=== PATIENT | female | born 1940 | race Caucasian/White ===

== ENCOUNTER 2017-01-28 19:55 | Inpatient (IN) | payer MEDICARE, OTHER ==
[2017-01-28 19:55] VITALS: BP 142/83; PULSE 73; RESP 18; TEMP 98.1; O2SAT 100
[2017-01-28] MEDS ORDERED: SODIUM CHLOR 0.9% 1000 ML INJ 1,000 ML IV ONE (20:05)
--- NOTE | 2017-01-28 20:09 | PD ---
HPI Chief Complaint: Stroke Alert Time Seen by Provider: 20:02 Travel History International Travel<30 days: No Contact w/Intl Traveler<30days: No Traveled to known affect area: No History of Present Illness HPI 76-year-old female presents to the emergency department from home by EMS transport with 45 minute history of new onset expressive aphasia and left facial droop. Patient per EMS report with previous CVA in 2014 without residual deficit and history of hypertension. Patient reportedly has not taken her blood pressure medication today. Patient does not take any blood thinning agents reportedly. Patient here noted to have slurring of speech and denies any pain. Patient's blood sugar sugar and the field was 73; patient's blood pressure in the field was 178/80. According to the dentist attendant patient had moderate expressive aphasia that seemed to improve while en route to the hospital but upon arriving to the emergency department en route to the exam room started noticing worsening expressive aphasia again. In field no other neurologic findings noted. PFSH Past Medical History Narrative Medical CVA 2015, hypertension, CHF, right carotid disease, upper GI bleed, hiatal hernia; left carotid endarterectomy, EGD; nursing notes reviewed Social History Tobacco Use: No Allergies-Medications (Allergen,Severity, Reaction): Coded Allergies: Clindamycin (Verified Allergy, Unknown, 01/28/17) Penicillin (Verified Allergy, Unknown, 01/28/17) Reported Meds & Prescriptions Reported Meds & Active Scripts Active Reported Flonase Nasal [place] (Fluticasone Nasal [place]) 50 Mcg/Act [place] 50 Mcg EACH NARE BID Advair Diskus Inh (Fluticasone-Salmeterol Inh) 250-50 Mcg/Blist Aer 1 Puff INH BID Rinse mouth after use. Guaifenesin 100 Mg/5 Ml Syp 5 Ml Artificial Tears Opth Drops (Polyvinyl Alcohol-Povidone Opth Drops) 0.5-0.6% Soln 1-2 Drop EACH EYE PRN PRN Rosuvastatin (Rosuvastatin Calcium) 20 Mg Tab 20 Mg PO DAILY Ditropan (Oxybutynin Chloride) 5 Mg Tab 10 Mg PO DAILY Levothyroxine (Levothyroxine Sodium) 50 Mcg Tab 50 Mcg PO DAILY Melatonin 10 Mg Tab 10 Mg PO HS PRN Vitamin D2 (Ergocalciferol) 2,000 Unit Tab 1.25 Mg PO DAILY Lisinopril 10 Mg Tab 10 Mg PO DAILY Zofran (Ondansetron HCl) 4 Mg Tab 4 Mg PO Q6HR PRN Narrative Medication Blood pressure medication, no aspirin or other blood thinning agents per patient Review of Systems HENT: No: Headaches Cardiovascular: No: Chest Pain or Discomfort Respiratory: No: Shortness of Breath Physical Exam Narrative GENERAL: Well-developed well-nourished female in no acute respiratory distress; GCS 15 with slurring of speech; patient in sinus rhythm blood pressure 142/83; NIHSS: 2 SKIN: Warm and dry. HEAD: Atraumatic. Normocephalic. EYES: Pupils equal and round, 2 mm. No scleral icterus. No injection or drainage. ENT: No nasal bleeding or discharge. Mucous membranes pink and moist. NECK: Trachea midline. No JVD. CARDIOVASCULAR: Regular rate and rhythm. RESPIRATORY: No accessory muscle use. Clear to auscultation. Breath sounds equal bilaterally. GASTROINTESTINAL: Abdomen soft, non-tender, nondistended. Hepatic and splenic margins not palpable. MUSCULOSKELETAL: Extremities without clubbing, cyanosis, or edema. No obvious deformities. NEUROLOGICAL: Awake and alert. No obvious cranial nerve deficits except is noted to have flattening of the left nasolabial fold and some drooping but also noted to have some mild droop of the right face as well, tongue midline, decreased gag. Motor grossly within normal limits. Five out of 5 muscle strength in the arms and legs. No pronator drift. No limb ataxia. Sensory exam grossly intact. Normal speech. PSYCHIATRIC: Appropriate mood and affect; insight and judgment normal. Data Data Last Documented VS Vital Signs Date Time Temp Pulse Resp B/P Pulse Ox O2 Delivery O2 Flow Rate FiO2 01/28/17 20:30 65 18 186/79 100 Nasal Cannula 2 01/28/17 19:[address] Brain W/O Iv Contrast(Rout) (01/28/17 ) Activity Bed Rest (01/28/17 ) Electrocardiogram (01/28/17 ) I-Stat Creatinine (01/28/17 20:05) I-Stat Profile (01/28/17 20:05) Prothrombin Time / Inr (Pt) (01/28/17 20:05) Act Partial Throm Time (Ptt) (01/28/17 20:05) Complete Blood Count With Diff (01/28/17 20:05) Fibrinogen (01/28/17 20:05) Creatine Kinase (Cpk) (01/28/17 20:05) Troponin I (01/28/17 20:05) Ua Includes Microscopic (01/28/17 20:05) Drug Screen, Random Urine (01/28/17 20:05) Type And Screen (01/28/17 20:05) Consult Neurology (01/28/17 ) Blood Glucose (01/28/17 20:05) Ecg Monitoring (01/28/17 20:05) Neuro Checks Q2HX12,Q4H (01/28/17 20:05) Nursing Bedside Swallow Assess .ONCE (01/28/17 20:05) Iv Access Insert/Monitor (01/28/17 20:05) NPO (01/28/17 20:05) Oximetry (01/28/17 20:05) Oxygen Administration (01/28/17 20:05) Sodium Chlor 0.9% 1000 Ml Inj (Ns 1000 M (01/28/17 20:05) Resp Oxygen Bennie C Titrat 1-4 L (01/28/17 20:05) Cath For Specimen (01/28/17 20:05) (Hub Use Only)Inp Phy Cons/Ref (01/28/17 ) Chest, Single Ap (01/28/17 ) Acetaminophen (Tylenol) (01/28/17 21:15) Admit Order (Ed Use Only) (01/28/17 ) ^ Saline Lock (01/28/17 21:15) Resp Oxygen Bennie C Titrat 1-4 L (01/28/17 ) Notify Dr: Other (01/28/17 21:15) Sodium Chloride 0.9% Flush (Ns Flush) (01/29/17 09:00) Sodium Chloride 0.9% Flush (Ns Flush) (01/28/17 21:15) Labs Laboratory Tests Test 01/28/17 19:55 White Blood Count 8.4 TH/MM3 Red Blood Count 4.16 MIL/MM3 Hemoglobin 12.2 GM/DL Bedside Hemoglobin 12.6 G/DL Hematocrit 36.6 % Bedside Hematocrit 37.0 % Mean Corpuscular Volume 87.9 FL Mean Corpuscular Hemoglobin 29.2 PG Mean Corpuscular Hemoglobin 33.2 % Concent Red Cell Distribution Width 14.9 % Platelet Count 205 TH/MM3 Mean Platelet Volume 9.8 FL Neutrophils (%) (Auto) 30.5 % Lymphocytes (%) (Auto) 52.1 % Monocytes (%) (Auto) 8.1 % Eosinophils (%) (Auto) 7.9 % Basophils (%) (Auto) 1.4 % Neutrophils # (Auto) 2.6 TH/MM3 Lymphocytes # (Auto) 4.4 TH/MM3 Monocytes # (Auto) 0.7 TH/MM3 Eosinophils # (Auto) 0.7 TH/MM3 Basophils # (Auto) 0.1 TH/MM3 CBC Comment DIFF FINAL Differential Comment Prothrombin Time 10.2 SEC Prothromb Time International 0.9 RATIO Ratio Activated Partial 23.4 SEC Thromboplast Time Fibrinogen 323 mg/dL Bedside Sodium 140 MMOL/L Bedside Potassium 3.8 MMOL/L Bedside Chloride 103 MMOL/L Bedside Blood Urea Nitrogen 16 MG/DL Bedside Creatinine 0.8 MG/DL Bedside Glucose 107 MG/DL Total Creatine Kinase 131 U/L Troponin I LESS THAN 0.02 NG/ML Blood Type A NEGATIVE Antibody Screen NEGATIVE MDM Medical Decision Making Medical Screen Exam Complete: Yes Emergency Medical Condition: Yes Medical Record Reviewed: Yes Interpretation(s) EKG normal sinus rhythm rate [address] elevation or injury pattern change noted no ectopy age-indeterminate Q wave inferiorly I-STAT results sodium in normal range at 140 potassium 3.8 BUN 16 creatinine 0.8 not elevated; hemoglobin 12.6 with 37% hematocrit CT brain noncontrast stat imaging reading per radiologist Dr. Palafox: "No acute abnormality" Differential Diagnosis Stroke alert, TIA, ICH, hypertension Narrative Course At 20:10 PM patient returns from CT continues to have mild expressive aphasia which she now reports is back to her baseline as well as having some residual right facial droop from her previous CVA. As she states this was left over from her 2015 CVA and states that she had a sudden onset headache prior to onset of symptoms that was 8/10 intensity is now 6/10 in intensity associated with nausea and one episode of vomiting. Patient denies having any visual disturbance neck pain chest pain palpitations shortness of breath abdominal pain or new onset weakness of the upper or lower extremities or balance disturbance. Patient relates she is no longer on aspirin because she had a GI bleed several years ago. Patient has had a left carotid endarterectomy. Patient states that she does have right carotid disease but has not had surgery. Patient recently moved here from [place] and does not have a local primary care provider or senior compensation analyst. Patient also has history of hypertension and CHF. Patient at this time shows some mild thickening of the left nasolabial fold however no obvious left facial droop at this time this has resolved; has some right facial droop present. Patient continues to have mild expressive aphasia. Patient again declines any thrombolytic therapy and does not want to pursue thrombectomy should she have lesion found by angiography. No prior history of headaches. NIHSS: 2 @ 8:50 PM son at bedside reports noting that patient had difficulty and slurring of speech, does have history of chronic right-sided facial weakness associated with prior CVA from 2015 and seemed to have "drawing of the left side of her face" and some balance disturbance with nausea; son reports now face looks back to her normal to him as well as speech appears back to her normal. Critical Care Narrative Aggregate critical care time was 35 minutes. Time to perform other separately billable procedures was not included in the critical care time. My time did not include minutes spent treating any other patients simultaneously or on activities that did not directly contribute to the patient's treatment. The services I provided to this patient were to treat and/or prevent clinically significant deterioration that could result in: ICH, hypertensive crisis, I provided critical care services requiring my management, as noted below: Chart data review, documentation time, medication orders and management, vital sign assessments/reviewing monitor data, ordering and reviewing lab tests, ordering and interpreting/reviewing x-rays and diagnostic studies, care of the patient and discussion of the patient with the admitting physicians. Physician Communication Physician Communication Stroke alert called in the field and upon patient's arrival to the emergency department case discussed with on-call neurologist Dr. Macedo at 20:03 is aware that I have discussed with patient intervention with thrombolytic and patient refuses this intervention suggests that should patient be desires of pursuing thrombectomy we will proceed with angiography. Patient returns from CT and to exam room @20:10 PM again thrombolysis and thrombectomy options are discussed with this patient and she states she does not want TPA she does not want thrombolysis and she does not want to pursue thrombectomy if found to have abnormality on CT angiogram is performed. At 20:12 PM per reading radiologist, Dr. Palafox, stat CT reading "no acute abnormality". This has been shared with the on-call neurologist who requests consult to see patient in a.m. Diagnosis Primary Impression: TIA (transient ischemic attack) Qualified Code: G45.9 - Transient cerebral ischemia, unspecified type Additional Impressions: CVA, old, facial weakness HTN (hypertension) Qualified Code: I10 - Essential hypertension Admitting Information Admitting Physician Requests: Observation Tomasa Luevano MD January 28, 2017 20:09
[2017-01-28 20:13] VITALS: BP 177/79; PULSE 74; RESP 18; O2SAT 100
--- NOTE | 2017-01-28 20:14 | RADRPT ---
EXAM DATE/TIME: 01/28/2017 20:05 [facility] COMPARISON: No previous studies available for comparison. INDICATIONS : Left side facial droop with aphasia. RADIATION DOSE: 34.90 CTDIvol (mGy) This report was called by Dr. Palafox to Dr. Luevano at 8: 12 PM MEDICAL HISTORY : Unable to obtain SURGICAL HISTORY : unable to obtain ENCOUNTER: Initial ACUITY: 1 day PAIN SCALE: 0/10 LOCATION: cranial TECHNIQUE: Multiple contiguous axial images were obtained of the head. Using automated exposure control and adj ustment of the mA and/or kV according to patient size, radiation dose was kept as low as reasonably a chievable to obtain optimal diagnostic quality images. FINDINGS: CEREBRUM: The ventricles are normal for age. No evidence of midline shift, mass lesion, hemorrhage or acute in farction. No extra-axial fluid collections are seen. POSTERIOR FOSSA: The cerebellum and brainstem are intact. The 4th ventricle is midline. The cerebellopontine angle i s unremarkable. EXTRACRANIAL: The visualized portion of the orbits is intact. SKULL: The calvaria is intact. No evidence of skull fracture. CONCLUSION: No acute intracranial abnormality is seen. Te Palafox MD on January 28, 2017 at 20:10 Board Certified Radiologist. This report was verified electronically.
[2017-01-28 20:23] VITALS: O2SAT 100
[2017-01-28 20:30] VITALS: BP 186/79; PULSE 65; RESP 18; O2SAT 100
[2017-01-28 20:30] LABS: AUTOMATED NEUTROPHIL # 2.6 TH/MM3 (1.8-7.7); BASOPHIL # 0.1 TH/MM3 (0-0.2); BASOPHIL % 1.4 % (0.0-2.0); EOSINOPHIL # 0.7 TH/MM3 (0-0.4); EOSINOPHIL % 7.9 % (0.0-4.0); HEMATOCRIT 36.6 % (35.0-46.0); HEMO FLAGS DIFF FINAL; LYMPH % 52.1 % (9.0-44.0); LYMPHOCYTE # 4.4 TH/MM3 (1.0-4.8); MEAN CELL VOLUME 87.9 FL (80.0-100.0); MEAN CORPUSCULAR HEMOGLOBIN 29.2 PG (27.0-34.0); MEAN CORPUSCULAR HGB CONC 33.2 % (32.0-36.0); MONO % 8.1 % (0.0-8.0); NEUT % 30.5 % (16.0-70.0); PLATELET COUNT 205 TH/MM3 (150-450); RED BLOOD COUNT 4.16 MIL/MM3 (4.00-5.30); RED CELL DISTRIBUTION WIDTH 14.9 % (11.6-17.2); WHITE BLOOD COUNT 8.4 TH/MM3 (4.0-11.0)
[2017-01-28 20:32] LABS: I-STAT POTASSIUM 3.8 MMOL/L (3.5-4.9); I-STAT SODIUM 140 MMOL/L (138-146)
[2017-01-28 20:49] LABS: APTT (PATIENT) 23.4 SEC (24.3-30.1); INTERNATIONAL NORMALIZED RATIO 0.9 RATIO; PROTHROMBIN TIME - PATIENT 10.2 SEC (9.8-11.6)
[2017-01-28] MEDS ORDERED: ZOFR4TAB PO (20:50)
[2017-01-28] MEDS ORDERED: LISI10TA3 PO (20:52)
[2017-01-28] MEDS ORDERED: ERGO2000 PO (20:53)
[2017-01-28] MEDS ORDERED: MELA1TAB18 PO (20:53)
[2017-01-28] MEDS ORDERED: LEVO50TA4 PO (20:53)
[2017-01-28] MEDS ORDERED: OXYB5TAB10 PO (20:54)
[2017-01-28] MEDS ORDERED: ROSU1TAB8 PO (20:54)
[2017-01-28] MEDS ORDERED: GUAI100S10 (20:55)
[2017-01-28] MEDS ORDERED: POLYSOL14 EACH EYE (20:55)
[2017-01-28] MEDS ORDERED: FLUT1SPR5 EACH NARE (20:56)
[2017-01-28] MEDS ORDERED: ADVA250A INH (20:56)
[2017-01-28 21:08] LABS: CREATINE KINASE 131 U/L (26-192)
[2017-01-28] MEDS ORDERED: SODIUM CHLORIDE 0.9% FLUSH 10 ML FLUSH IVF PRN (21:15)
[2017-01-28] MEDS ORDERED: ACETAMINOPHEN 325 MG TAB PO ONE (21:15)
[2017-01-28] MEDS ORDERED: SODIUM CHLORIDE 0.9% FLUSH 10 ML FLUSH IV FLUSH PRN (21:30)
[2017-01-28] MEDS ORDERED: BISACODYL 10 MG SUPP RECTAL PRN (21:30)
[2017-01-28] MEDS ORDERED: MORPHINE SULFATE 4 MG/ML INJ IV PRN (21:30)
[2017-01-28] MEDS ORDERED: ONDANSETRON HCL 4 MG/2 ML VIAL IVP PRN (21:30)
[2017-01-28] MEDS ORDERED: ACETAMINOPHEN 325 MG TAB PO PRN (21:30)
--- NOTE | 2017-01-28 21:34 | HHI.HP ---
[facility] Admission Diagnosis TIA Diagnoses: (1) TIA (transient ischemic attack) Diagnosis: Principal (2) Headache Diagnosis: Principal (3) HTN (hypertension) Diagnosis: Principal (4) COPD (chronic obstructive pulmonary disease) Diagnosis: Principal Travel History International Travel<30 Days: No Contact w/Intl Traveler <30 Da: No Traveled to Known Affected Are: No History of Present Illness This is a 76-year-old female with a PMH of CVA with Residual Expressive Aphasia and Facial Droop, HTN, Upper GI Bleed and CHF (EF unknown) who was brought to the ER by EMS for slurred speech and worsening facial droop noted by family starting shortly prior to presentation. Pt reports c/o severe headache prior to symptoms. Upon arrival to ER symptoms had improved, currently w/ facial droop and expressive aphasia back to baseline. On arrival, BP 142/83, HR 73, O2 sat 100% on 2L NC, Afebrile. CBC essentially unremarkable. Chemistry unremarkable. Troponin negative. CXR with no acute findings. CT Head negative. Dr. Carlin consulted as Stroke Alert, recommended TPA, however pt and family refused TPA or thrombectomy. Not on anticoagulation at this time. Review of Systems Except as stated in HPI: all other systems reviewed are Neg ROS: 14 point review of systems otherwise negative. Past Family Social History Past Medical History PMH: CVA with Residual Expressive Aphasia and Facial Droop, HTN, Upper GI Bleed and CHF (EF unknown) Past Surgical History PAST SURGICAL HISTORY: Cataract Surgery, Cholecystectomy, Hernia Repair, Hysterectomy, Left CEA Allergies: Coded Allergies: Clindamycin (Verified Allergy, Unknown, 01/28/17) Penicillin (Verified Allergy, Unknown, 01/28/17) Family History PAST FAMILY HISTORY: Reviewed. No h/o DM or CAD Social History PAST SOCIAL HISTORY: Negative for alcohol, tobacco or drugs. Physical Exam Vital Signs Vital Signs Date Time Temp Pulse Resp B/P Pulse Ox O2 Delivery O2 Flow Rate FiO2 01/28/17 20:30 65 18 186/79 100 Nasal Cannula 2 01/28/17 20:23 100 Nasal Cannula 2 01/28/17 20:23 100 Nasal Cannula 2 01/28/17 20:13 74 18 177/79 100 Nasal Cannula 2 01/28/17 19:55 98.1 73 18 142/83 100 Nasal Cannula 2 Physical Exam PE: GENERAL: Elderly white female in no acute distress. +Mild slurred speech, at baseline. HEENT: PERRLA, EOMI. No scleral icterus or conjunctival pallor. No lid lag. + right facial droop, at baseline. CARDIOVASCULAR: Regular rate and rhythm. No obvious murmurs to auscultation. No chest tenderness to palpation. RESPIRATORY: No obvious rhonchi or wheezing. Clear to auscultation. Breath sounds equal bilaterally. GASTROINTESTINAL: Abdomen soft, non-tender, nondistended. BS normal. MUSCULOSKELETAL: Extremities without clubbing, cyanosis, or edema. No obvious deformities. NEUROLOGICAL: Awake, alert and oriented x4. No new focal neurologic deficits. Moving both upper and lower extremities spontaneously. Laboratory Laboratory Tests Test 01/28/17 19:55 White Blood Count 8.4 Red Blood Count 4.16 Hemoglobin 12.2 Bedside Hemoglobin 12.6 Hematocrit 36.6 Bedside Hematocrit 37.0 Mean Corpuscular Volume 87.9 Mean Corpuscular Hemoglobin 29.2 Mean Corpuscular Hemoglobin 33.2 Concent Red Cell Distribution Width 14.9 Platelet Count 205 Mean Platelet Volume 9.8 Neutrophils (%) (Auto) 30.5 Lymphocytes (%) (Auto) 52.1 Monocytes (%) (Auto) 8.1 Eosinophils (%) (Auto) 7.9 Basophils (%) (Auto) 1.4 Neutrophils # (Auto) 2.6 Lymphocytes # (Auto) 4.4 Monocytes # (Auto) 0.7 Eosinophils # (Auto) 0.7 Basophils # (Auto) 0.1 CBC Comment DIFF FINAL Differential Comment Prothrombin Time 10.2 Prothromb Time International 0.9 Ratio Activated Partial 23.4 Thromboplast Time Fibrinogen 323 Bedside Sodium 140 Bedside Potassium 3.8 Bedside Chloride 103 Bedside Blood Urea Nitrogen 16 Bedside Creatinine 0.8 Bedside Glucose 107 Total Creatine Kinase 131 Troponin I LESS THAN 0.02 Blood Type A NEGATIVE Antibody Screen NEGATIVE Result Diagram: 01/28/171954 Assessment and Plan Problem List: (1) TIA (transient ischemic attack) ICD Code: G45.9 Status: Acute (2) HTN (hypertension) ICD Code: I10 Status: Acute (3) Headache ICD Code: R51 Status: Acute (4) COPD (chronic obstructive pulmonary disease) ICD Code: J44.9 Status: Acute Assessment and Plan A/P: 1. TIA: h/o CVA w/ residual expressive aphasia/right facial droop, w/ acute worsening of droop and slurred speech, symptoms now resolved. CT Head w/ no acute findings, images reviewed by me. Dr. Carlin consulted by ER physician, recommended TPA, however pt and family declined thrombolysis or thrombectomy. Start ASA-caution w/ h/o GI Bleed. Resume home Statin. Neurology to eval in am. 2. Headache: S/p Tylenol, currently improved. Symptom onset shortly before slurred speech/facial droop. Analgesics as needed. 3. HTN: BP 170's systolic. Will allow for permissive HTN, hold home medications. 4. COPD: Chronic Obstructive Respiratory Failure. Stable. DuoNeb prn. 5. DVT Prophylaxis: SCD/Teds. 6. Social work for d/c planning as needed. 7. Case discussed w/ ER physician at length. Physician Certification 2 Midnight Certification Type: Admission for Inpatient Services Order for Inpatient Services The services are ordered in accordance with Medicare regulations or non- Medicare payer requirements, as applicable. In the case of services not specified as inpatient-only, they are appropriately provided as inpatient services in accordance with the 2-midnight benchmark. Estimated LOS (days): 2 days is the estimated time the patient will need to remain in the hospital, assuming treatment plan goals are met and no additional complications. Post-Hospital Plan: Not yet determined Problem Qualifiers (1) TIA (transient ischemic attack): Qualified Code: G45.9 - Transient cerebral ischemia, unspecified type (2) HTN (hypertension): Qualified Code: I10 - Essential hypertension Amelie Samayoa MD January 28, 2017 21:34
[2017-01-28 21:37] VITALS: BP 156/78; PULSE 78; RESP 18; O2SAT 99
--- NOTE | 2017-01-28 21:39 | RADRPT ---
EXAM DATE/TIME: 01/28/2017 21:21 [facility] COMPARISON: No previous studies available for comparison. INDICATIONS : Stroke alert. MEDICAL HISTORY : unable to obtain SURGICAL HISTORY : unable to obtain ENCOUNTER: Initial ACUITY: 1 day PAIN SCORE: 4/10 LOCATION: Bilateral upper chest FINDINGS: The heart size is normal. There is linear increased density at the medial left base. The remaining as pects of the lungs are clear. No effusion is seen. Spurs are seen in the thoracic spine. CONCLUSION: Linear density at the medial left base likely related to atelectasis or mild consolidation. Te Palafox MD on January 28, 2017 at 21:36 Board Certified Radiologist. This report was verified electronically.
[2017-01-28] MEDS: SODIUM CHLOR 0.9% 1000 ML INJ 1,000 ML IV SCH (21:52)
[2017-01-29] VITALS (10 sets, daily range): BP systolic 113–160; BP diastolic 56–86; PULSE 51–66; RESP 16–20; TEMP 96.9–98; O2SAT 98–100
[2017-01-29] MEDS: ACETAMINOPHEN/HYDROcodone 325 MG/5 MG TAB PO PRN (04:37)
[2017-01-29] MEDS: SODIUM CHLOR 0.9% 1000 ML INJ 1,000 ML IV SCH ×4 (08:07→20:46)
[2017-01-29] MEDS: SODIUM CHLORIDE 0.9% FLUSH 10 ML FLUSH IV FLUSH SCH ×2 (08:07→20:45)
[2017-01-29] MEDS: ATORVASTATIN 40 MG TAB PO SCH (08:09)
[2017-01-29] MEDS: ASPIRIN EC 81 MG TABEC PO SCH (08:09)
[2017-01-29] MEDS: BUDESONIDE-FORMOTEROL 160/4.5 MCG INHALER INH SCH ×2 (08:27→20:45)
[2017-01-29 08:37] LABS: ALT (GPT) 20 U/L (10-53); ANION GAP 4 MEQ/L (5-15); AST (GOT) 23 U/L (15-37); BICARBONATE 28.9 MEQ/L (21.0-32.0); BLOOD UREA NITROGEN 11 MG/DL (7-18); CHLORIDE 109 MEQ/L (98-107); GLOMERULAR FILTRATION RATE 72 ML/MIN (>89); POTASSIUM 4.2 MEQ/L (3.5-5.1); SODIUM (NA) 142 MEQ/L (136-145)
[2017-01-29 08:39] LABS: ALKALINE PHOSPHATASE 76 U/L (45-117); TOTAL BILIRUBIN ADULT 0.7 MG/DL (0.2-1.0)
[2017-01-29 09:00] LABS: AUTOMATED NEUTROPHIL # 2.2 TH/MM3 (1.8-7.7); BASOPHIL # 0.1 TH/MM3 (0-0.2); BASOPHIL % 2.6 % (0.0-2.0); EOSINOPHIL # 0.5 TH/MM3 (0-0.4); EOSINOPHIL % 8.5 % (0.0-4.0); HEMATOCRIT 35.4 % (35.0-46.0); HEMO FLAGS DIFF FINAL; LYMPHOCYTE # 2.4 TH/MM3 (1.0-4.8); MEAN CORPUSCULAR HEMOGLOBIN 29.1 PG (27.0-34.0); MONO % 7.3 % (0.0-8.0); NEUT % 39.6 % (16.0-70.0); PLATELET COUNT 190 TH/MM3 (150-450); RED BLOOD COUNT 4.03 MIL/MM3 (4.00-5.30); RED CELL DISTRIBUTION WIDTH 15.2 % (11.6-17.2); WHITE BLOOD COUNT 5.7 TH/MM3 (4.0-11.0)
[2017-01-29] MEDS ORDERED: SODIUM CHLORIDE 0.9% FLUSH 10 ML FLUSH IV FLUSH SCH (09:00)
--- NOTE | 2017-01-29 10:09 | MB ---
cc: AURY SEGURA M.D. DATE OF CONSULTATION: 01/29/2017 HISTORY OF PRESENT ILLNESS The patient is a 76-year-old right-handed woman with hypertension, hypercholesterolemia, COPD, hypothyroidism, tells me she has had five strokes. She usually takes Plavix and was on Plavix and aspirin but she had some bleeding in and around her eyes so about five months ago she was switched to Plavix from the aspirin. Nevertheless, she has not taken it in the last three days because she ran out of medication. She just moved down here from [place]. She tells me she has had five strokes which mainly were left facial tingling and some nausea and in March 2015 she had a headache and the next thing she knew she was in the hospital and had trouble talking and walking and after that went to rehab. Yesterday she came back from the store and had the sudden onset of severe headache, worse of her life, with nausea, vomiting, no weakness, vision loss, paralysis or numbness. It was a bifrontal headache and she came to the hospital. The ER note, however, says that she had expressive aphasia and left facial droop. She had some slurred speech in the ER. Blood sugar was 73. Blood pressure was 178/80. Aphasia seemed to improve on the way to the hospital. PAST MEDICAL HISTORY 1. As above. 2. CHF. 3. Right carotid disease. 4. Upper GI bleeding. 5. Left carotid endarterectomy. 6. EGD. ALLERGIES 1. CLINDAMYCIN. 2. PENICILLIN. MEDICATIONS 1. Flonase. 2. Advair. 3. Rosuvastatin. 4. Ditropan. 5. Thyroid medicine. 6. Melatonin. 7. Lisinopril. 8. Zofran. 9. Plavix, which she has not taken in 3 days. REVIEW OF SYSTEMS She denied any diabetes, MO, stent, angioplasty, atrial fibrillation, Coumadin, renal or hepatic disease, lupus, ulcer cancer or seizure. PHYSICAL EXAMINATION VITAL SIGNS: On exam she has been in sinus rhythm, afebrile, 52, 16, 113/56 to 186/79. NECK: There were no carotid bruits. HEART: Regular rhythm. I do not detect a murmur. NEUROLOGIC: Pupils are equal. Visual wallace are full. Extraocular intact without nystagmus. Face is symmetric with normal station. Tongue is midline. There is no drift. She has normal strength in upper and lower extremities bilaterally. DTRs are trace throughout. Toes are downgoing bilaterally. Pinprick is intact throughout. She is not ataxic on [id number]. Speech is fluent. She is not aphasic. NIH Stroke Score is zero. LABORATORY CBC is normal. Basic metabolic profile normal. Troponin, CPK normal. Coags normal. IMAGING Chest x-ray showed atelectasis on the left. CAT scan was read as no acute abnormality. On review of those films I would agree that this appeared to be normal. IMPRESSION Sounds like possible TIA with the slurred speech and left facial droop. Will put her back on her Plavix. Will get an MRI of the brain, MRA curyung Veloz and neck, echocardiogram, Holter monitor. Will check some additional blood work. I will be following her with you in the hospital. MD SCOTT Farah/CONNOR /8:30 AM /9:48 AM
[2017-01-29] MEDS: CLOPIDOGREL 75 MG TAB PO SCH (10:31)
[2017-01-29] MEDS ORDERED: GADODIAMIDE PF 287 MG/ML 20 ML VIAL (for RAD MRI) IV ONE (12:09)
--- NOTE | 2017-01-29 12:10 | RADRPT ---
EXAM DATE/TIME: 01/29/2017 11:21 [facility] COMPARISON: No previous studies available for comparison. INDICATIONS : Slurred speech. MEDICAL HISTORY : Hypertension. SURGICAL HISTORY : Hysterectomy. Cholecystectomy. Discectomy, cervical. ENCOUNTER: Initial ACUITY: 2 day PAIN SCORE: 0/10 LOCATION: Head. Please note a normal MRA of the brain does not entirely exclude the possibility of a small aneurysm, nor the possibility of distal intracranial vessel disease. TECHNIQUE: 3D time of flight MRA was performed. Source images, multiplanar STS MIP, and 3D volume MIP reconstru ctions were reviewed. FINDINGS: Both distal carotid arteries are widely patent. The left vert is hypoplastic. The right vert is widel y patent. The basilar is widely patent. The appearance of anterior, middle and posterior cerebral circulation is within normal limits. CONCLUSION: 1. No large or central vessel occlusion identified. 2. Incidental hypoplastic left vert. Kane Frost MD on January 29, 2017 at 12:01 Board Certified Radiologist. This report was verified electronically.
--- NOTE | 2017-01-29 12:35 | RADRPT ---
EXAM DATE/TIME: 01/29/2017 11:21 [facility] COMPARISON: MRI BRAIN W & W/O CONTRAST, January 29, 2017, 11:21. INDICATIONS : Stroke. CONTRAST: 20 cc Omniscan (gadodiamide) IV MEDICAL HISTORY : Hypertension. SURGICAL HISTORY : Discectomy, cervical. Hysterectomy. Cholecystectomy. ENCOUNTER: Initial ACUITY: 2 day PAIN SCORE: 0/10 LOCATION: neck Percent stenosis is calculated using the diameter of the stenotic region over the diameter of the nor mal distal internal carotid artery. TECHNIQUE: Bolus infused MRA of the extracranial circulation was performed using a neurovascular coil. Post pro cessing was performed including rotating subvolume maximum intensity projections of each carotid kings ry, rotating full volume maximum intensity projections of both carotid arteries, sagittal and coronal sliding thin slab reformations of each carotid artery, and left oblique sliding thin slab reformatio n through the aortic arch to include the origin of the arch branch vessels. FINDINGS: AORTIC ARCH: There is a three vessel origin of the great vessels from the aorta. No evidence of ostial narrowing. There is mild kinking and moderate stenosis involving the left subclavian artery just proximal to th e left vertebral artery origin. RIGHT CAROTID: The common carotid artery is intact. The carotid bulb has a normal configuration without ulceration or narrowing. The internal carotid artery lumen is smooth without stenosis. The external carotid ar amy is intact. LEFT CAROTID: The common carotid artery is intact. The carotid bulb has a normal configuration without ulceration or narrowing. The internal carotid artery lumen is smooth without stenosis. The external carotid ar amy is intact. VERTEBRALS: The left vertebral artery is diminutive. Right vertebral is widely patent. CONCLUSION: No evidence of carotid stenosis Te Moreno MD on January 29, 2017 at 12:01 Board Certified Radiologist. This report was verified electronically.
--- NOTE | 2017-01-29 13:29 | HHI.PR ---
Subjective Remarks Complaints of headache. No change in vision. denies chest pain, sob, n/v/d/c. Says headache has improved since yesterday . Still with slurred speech, improving some. Nop motor deficit, no new motor/sensory deficit. Objective Vitals Vital Signs Date Time Temp Pulse Resp B/P Pulse Ox O2 Delivery O2 Flow Rate FiO2 01/29/17 12:00 97.4 54 17 141/65 100 01/29/17 08:00 96.9 53 19 160/86 99 01/29/17 05:35 16 01/29/17 04:00 97.9 52 16 113/56 100 01/29/17 00:23 97.6 51 18 131/66 100 01/28/17 21:37 78 18 156/78 99 Nasal Cannula 2 01/28/17 20:30 65 18 186/79 100 Nasal Cannula 2 01/28/17 20:23 100 Nasal Cannula 2 01/28/17 20:23 100 Nasal Cannula 2 01/28/17 20:13 74 18 177/79 100 Nasal Cannula 2 01/28/17 19:55 100 Nasal Cannula 3.00 01/28/17 19:55 100 3.00 01/28/17 19:55 98.1 73 18 142/83 100 Nasal Cannula 2 I/O 01/28/17 01/28/17 01/28/17 01/29/17 01/29/17 01/29/17 07:00 15:00 23:00 07:00 15:00 23:00 Intake Total 1120 ml Output Total 800 ml Balance 320 ml Intake Oral 120 ml IV Total 1000 ml Output Urine Total 800 ml Result Diagram: 01/29/1772001/29/17720 Imaging Last Impressions Neck Magnetic Resonance Angiography 01/29/17831 Signed Impressions: Service Date/Time: Sunday, January 29, 2017 11:21 - CONCLUSION: No evidence of carotid stenosis Te Moreno MD Head Magnetic Resonance Angiography 01/29/17831 Signed Impressions: Service Date/Time: Sunday, January 29, 2017 11:21 - CONCLUSION: 1. No large or central vessel occlusion identified. 2. Incidental hypoplastic left vert. Kane Frost MD Head CT 01/28/17 0000 Signed Impressions: Service Date/Time: January 20:05 - CONCLUSION: No acute intracranial abnormality is seen. Te Palafox MD Chest X-Ray 01/28/17 0000 Signed Impressions: Service Date/Time: January 21:21 - CONCLUSION: Linear density at the medial left base likely related to atelectasis or mild consolidation. Te Palafox MD Objective Remarks GENERAL: Elderly white female in no acute distress. +Mild slurred speech, at baseline. HEENT: PERRLA, EOMI. No scleral icterus or conjunctival pallor. No lid lag. + right facial droop, at baseline. CARDIOVASCULAR: Regular rate and rhythm. No obvious murmurs to auscultation. No chest tenderness to palpation. RESPIRATORY: No obvious rhonchi or wheezing. Clear to auscultation. Breath sounds equal bilaterally. GASTROINTESTINAL: Abdomen soft, non-tender, nondistended. BS normal. MUSCULOSKELETAL: Extremities without clubbing, cyanosis, or edema. No obvious deformities. NEUROLOGICAL: Awake, alert and oriented x4. No new focal neurologic deficits. Moving both upper and lower extremities spontaneously. A/P Problem List: (1) TIA (transient ischemic attack) ICD Code: G45.9 Status: Acute (2) HTN (hypertension) ICD Code: I10 Status: Acute (3) Headache ICD Code: R51 Status: Acute (4) COPD (chronic obstructive pulmonary disease) ICD Code: J44.9 Status: Acute Assessment and Plan 1. 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 CT Head w/ no acute findings. Dr Carlin neurology consulted in the ED, he recommended TPA, however pt and family declined thrombolysis or thrombectomy. Start ASA-caution with h/ o GI Bleed. Resume home Statin. Plan for MRI/ MRA, 2D ECHO, Holter monitor, further work up per neuro. Neurology following, appreciate recommendations. 2. Headache: S/p Tylenol, currently improved. Symptom onset shortly before slurred speech/facial droop. Analgesics as needed. 3. HTN: BP 170's systolic. Will allow for permissive HTN, hold home medications. 4. COPD: Chronic Obstructive Respiratory Failure. Stable. DuoNeb prn. DVT Prophylaxis: SCD/Teds. CM consult for DC planning as needed. Discussed with the patient and the nurse. Problem Qualifiers (1) TIA (transient ischemic attack): Qualified Code: G45.9 - Transient cerebral ischemia, unspecified type (2) HTN (hypertension): Qualified Code: I10 - Essential hypertension Alicia Rodriguez MD January 29, 2017 13:28
--- NOTE | 2017-01-29 13:45 | RADRPT ---
EXAM DATE/TIME: 01/29/2017 11:21 [facility] COMPARISON: CT BRAIN W/O CONTRAST, January 28, 2017, 20:05. INDICATIONS : Slurred speech. CONTRAST: 20 cc Omniscan (gadodiamide) IV MEDICAL HISTORY : Hypertension. SURGICAL HISTORY : Hysterectomy. Discectomy, cervical. Cholecystectomy. ENCOUNTER: Initial ACUITY: 2 day PAIN SCORE: 0/10 LOCATION: head. TECHNIQUE: Multiplanar, multisequence MRI of the brain was performed both prior to and following the administrat ion of paramagnetic contrast. FINDINGS: CEREBRUM: The ventricles are normal for age. No evidence of midline shift, mass lesion, hemorrhage or acute in farction. No extraaxial fluid collections are seen. The pituitary gland and suprasellar cistern are normal in configuration. WHITE MATTER: A few tiny nonspecific white matter lesions are observed involving the periventricular and subcortica l white matter of both cerebral hemispheres. POSTERIOR FOSSA: The cerebellum and brainstem are intact. The 4th ventricle is midline. The cerebellopontine angle is unremarkable. The cerebellar tonsils are normal in position. DIFFUSION IMAGING: No focal areas of restricted diffusion are seen. No evidence of acute infarction. EXTRACRANIAL: The visualized portions of the orbits and paranasal sinuses are unremarkable. Scattered fluid signal is seen involving the mastoid air cells bilaterally. This is more pronounced on the left. POST-CONTRAST: No abnormal areas of parenchymal or dural enhancement. No evidence of blood-brain barrier breakdown. CONCLUSION: 1. No acute intracranial abnormality. 2. Small nonspecific scattered white matter lesions. These likely relate to chronic small vessel isch emic change. 3. Fluid signal involving the mastoid air cells bilaterally. Clinical evaluation for any signs of acu te mastoiditis suggested. Carl Mix Jr., MD on January 29, 2017 at 13:38 Board Certified Radiologist. This report was verified electronically.
--- NOTE | 2017-01-29 15:34 | EKG ---
Date Performed: 01/28/2017 Time Performed: 19:58:31 PTAGE: 76 years EKG: Sinus rhythm POSSIBLE INFERIOR MYOCARDIAL INFARCTION BORDERLINE ECG NO PREVIOUS TRACING DOCTOR: Dov Tan Interpretating Date/Time 01/29/2017 15:29:50
[2017-01-29 16:55] LABS: RHEUMATOID FACTOR TRIGGER LESS THAN 10.0 IU/ML (0.0-14.9)
[2017-01-29 17:21] LABS: FREE T4 0.9 NG/DL (0.76-1.46); HDL CHOLESTEROL 45.5 MG/DL (40.0-60.0)
--- NOTE | 2017-01-29 19:01 | EC ---
Study Study Date:01/29/2017 STUDY CONCLUSIONS SUMMARY - Left ventricle: The cavity size was normal. Systolic function was normal. The estimated ejection fraction was in the range of 55% to 60%. Wall motion was normal; there were no regional wall motion abnormalities. The study is not technically sufficient to allow evaluation of LV diastolic function. - Aortic valve: There is aortic valve sclerosis. Mild to moderate regurgitation directed centrally in the LVOT. If LV function is below 40, please consider prescribing an ACEI or ARB or document rationale for non-use. PROCEDURE DATA STUDY STATUS: Elective. Procedure: Transthoracic echocardiography. Image quality was good. Scanning was performed from the parasternal, apical, and subcostal acoustic windows. Study completion: The patient tolerated the procedure well. Transthoracic echocardiography. M-mode, complete 2D, complete spectral Doppler, and color Doppler. Patient status: Inpatient. CARDIAC ANATOMY LEFT VENTRICLE: The cavity size was normal. Systolic function was normal. The estimated ejection fraction was in the range of 55% to 60%. Wall motion was normal; there were no regional wall motion abnormalities. The study is not technically sufficient to allow evaluation of LV diastolic function. AORTIC VALVE: The valve appears to be grossly normal. Probably trileaflet. Doppler: There is aortic valve sclerosis. Mild to moderate regurgitation directed centrally in the LVOT. Mean gradient: 10mm Hg (S). Peak gradient: 22mm Hg (S). MITRAL VALVE: The valve appears to be grossly normal. Doppler: There was no evidence for stenosis. Trace to mild regurgitation. Mean gradient: 2mm Hg (D). Peak gradient: 5mm Hg (D). LEFT ATRIUM: The atrium was normal in size. RIGHT VENTRICLE: The cavity size was normal. PULMONIC VALVE: Not visualized. TRICUSPID VALVE: The valve appears to be grossly normal. Doppler: There was no evidence for stenosis. Trace regurgitation. PERICARDIUM: There was no pericardial effusion. BASIC MEASUREMENTS ADULT NORMAL Left ventricle LV internal dimension, ED, chordal level, 45 mm 43-52 PLAX LV internal dimension, ES, chordal level, 32.2 mm 23-38 PLAX Fractional shortening, chordal level, PLAX *28 % >29 LV posterior wall thickness, ED 7.05 mm IVS/LVPW ratio, ED 1.26 <1.3 Ventricular septum Septal thickness, ED 8.89 mm Aortic valve Leaflet separation 15 mm 15-26 Left atrium Anterior-posterior dimension 28 mm Right ventricle RV internal dimension, ED, PLAX 20.7 mm 19-38 BASIC MEASUREMENTS ADULT NORMAL Aortic valve Leaflet separation 15 mm 15-26 Aorta Root diameter, ED 23 mm 20-37 DOPPLER MEASUREMENTS ADULT NORMAL Aortic valve Peak velocity, S 234 cm/s Mean velocity, S 144 cm/s VTI, S 53.5 cm Mean gradient, S 10 mm Hg Peak gradient, S 22 mm Hg Mitral valve Peak E-wave velocity 91.9 cm/s Peak A-wave velocity 90.7 cm/s Mean velocity, D 68.8 cm/s Mean gradient, D 2 mm Hg Peak gradient, D 5 mm Hg Peak E/A ratio 1 Tricuspid valve Regurgitant peak velocity 233 cm/s Peak RV-RA gradient, S 22 mm Hg Maximal regurgitant velocity 233 cm/s LEGEND: Mean values are shown as u=mean value. Asterisk (*) quinones values outside specified normal range. Prepared and signed by Amandeep Dyer [id number]
[2017-01-30] VITALS (9 sets, daily range): BP systolic 115–154; BP diastolic 54–70; PULSE 54–66; RESP 18–20; TEMP 96.8–97.8; O2SAT 94–100
[2017-01-30] MEDS: SODIUM CHLOR 0.9% 1000 ML INJ 1,000 ML IV SCH ×5 (03:29→21:34)
[2017-01-30] MEDS: ACETAMINOPHEN/HYDROcodone 325 MG/5 MG TAB PO PRN (06:04)
[2017-01-30] MEDS: ASPIRIN EC 81 MG TABEC PO SCH (07:49)
[2017-01-30] MEDS: CLOPIDOGREL 75 MG TAB PO SCH (07:50)
[2017-01-30] MEDS: ATORVASTATIN 40 MG TAB PO SCH (07:50)
[2017-01-30] MEDS: SODIUM CHLORIDE 0.9% FLUSH 10 ML FLUSH IV FLUSH SCH ×2 (07:51→21:32)
[2017-01-30] MEDS: BUDESONIDE-FORMOTEROL 160/4.5 MCG INHALER INH SCH ×2 (09:47→21:32)
--- NOTE | 2017-01-30 10:04 | HHI.PR ---
Objective Vital Signs Date Time Temp Pulse Resp B/P Pulse Ox O2 Delivery O2 Flow Rate FiO2 01/30/17 08:00 97.7 54 19 141/67 96 01/30/17 07:56 16 01/30/17 07:55 16 01/30/17 04:00 96.8 62 20 139/57 95 01/30/17 00:00 97.0 62 20 125/65 100 01/29/17 21:58 100 Nasal Cannula 2.00 01/29/17 20:00 97.7 63 20 142/67 100 01/29/17 19:42 66 01/29/17 18:03 98 Nasal Cannula 2.00 01/29/17 16:00 98.0 55 17 117/62 99 01/29/17 12:00 97.4 54 17 141/65 100 I/O 01/29/17 01/29/17 01/29/17 01/30/17 01/30/17 01/30/17 07:00 15:00 23:00 07:00 15:00 23:00 Intake Total 1120 ml 720 ml 240 ml 1050 ml Output Total 800 ml 500 ml Balance 320 ml 720 ml 240 ml 550 ml Intake Oral 120 ml 720 ml 240 ml 200 ml IV Total 1000 ml 750 ml Other 100 ml Output Urine Total 800 ml 500 ml # Voids 4 2 1 # Bowel Movements 1 0 0 Result Diagram: 01/29/17 0721 01/29/17 0721 Other Results mra neck 40% r ica mra cow ? some r mca dz probably ok esr 73 echo nl sr r vert dom Objective Remarks awake alert face and speech nl is tender bilat temples a little Assessment and Plan Assessment and Plan imp tia? another patterson today has not been having patterson but has been having tenderness or temples and forehead for a month and esr inc check crp and if inc will consider ta bx no old cva major on mri may have some r mca dz? cta check fuy holter plavix asa 81 and statin for now ldl 127 check eeg Fransico Welsh MD January 30, 2017 10:04
[2017-01-30 11:33] LABS: TOTAL PROTEIN SPE 6.5 GM/DL (6.0-7.6)
--- NOTE | 2017-01-30 13:00 | HHI.PR ---
Subjective Remarks Patient in nad. Says she has less headache today. No change in vision.No motor deficit. Denies cp, sob, n/v/d/c. Objective Vitals Vital Signs Date Time Temp Pulse Resp B/P Pulse Ox O2 Delivery O2 Flow Rate FiO2 01/30/17 12:00 97.4 55 18 154/67 100 01/30/17 08:00 97.7 54 19 141/67 96 01/30/17 07:56 16 01/30/17 07:55 16 01/30/17 04:00 96.8 62 20 139/57 95 01/30/17 00:00 97.0 62 20 125/65 100 01/29/17 21:58 100 Nasal Cannula 2.00 01/29/17 20:00 97.7 63 20 142/67 100 01/29/17 19:42 66 01/29/17 18:03 98 Nasal Cannula 2.00 01/29/17 16:00 98.0 55 17 117/62 99 I/O 01/29/17 01/29/17 01/29/17 01/30/17 01/30/17 01/30/17 07:00 15:00 23:00 07:00 15:00 23:00 Intake Total 1120 ml 720 ml 240 ml 1050 ml Output Total 800 ml 500 ml Balance 320 ml 720 ml 240 ml 550 ml Intake Oral 120 ml 720 ml 240 ml 200 ml IV Total 1000 ml 750 ml Other 100 ml Output Urine Total 800 ml 500 ml # Voids 4 2 1 # Bowel Movements 1 0 0 Result Diagram: 01/29/1772001/29/17720 Imaging Last Impressions Neck Magnetic Resonance Angiography 01/29/17831 Signed Impressions: Service Date/Time: Sunday, January 29, 2017 11:21 - CONCLUSION: No evidence of carotid stenosis Te Moreno MD Head Magnetic Resonance Angiography 01/29/17831 Signed Impressions: Service Date/Time: Sunday, January 29, 2017 11:21 - CONCLUSION: 1. No large or central vessel occlusion identified. 2. Incidental hypoplastic left vert. Kane Frost MD Brain MRI 01/29/17831 Signed Impressions: Service Date/Time: Sunday, January 29, 2017 11:21 - CONCLUSION: 1. No acute intracranial abnormality. 2. Small nonspecific scattered white matter lesions. These likely relate to chronic small vessel ischemic change. 3. Fluid signal involving the mastoid air cells bilaterally. Clinical evaluation for any signs of acute mastoiditis suggested. Carl Mix Jr., MD Head CT 01/28/17 Signed Impressions: Service Date/Time: January 20:05 - CONCLUSION: No acute intracranial abnormality is seen. Te Palafox MD Chest X-Ray 01/28/17 Signed Impressions: Service Date/Time: January 21:21 - CONCLUSION: Linear density at the medial left base likely related to atelectasis or mild consolidation. Te Palafox MD Objective Remarks GENERAL: Elderly white female in no acute distress. +Mild slurred speech, at baseline. HEENT: PERRLA, EOMI. No scleral icterus or conjunctival pallor. No lid lag. + right facial droop, at baseline. CARDIOVASCULAR: Regular rate and rhythm. No obvious murmurs to auscultation. No chest tenderness to palpation. RESPIRATORY: No obvious rhonchi or wheezing. Clear to auscultation. Breath sounds equal bilaterally. GASTROINTESTINAL: Abdomen soft, non-tender, nondistended. BS normal. MUSCULOSKELETAL: Extremities without clubbing, cyanosis, or edema. No obvious deformities. NEUROLOGICAL: Awake, alert and oriented x4. No new focal neurologic deficits. Moving both upper and lower extremities spontaneously. A/P Problem List: (1) TIA (transient ischemic attack) ICD Code: G45.9 Status: Acute (2) HTN (hypertension) ICD Code: I10 Status: Acute (3) Headache ICD Code: R51 Status: Acute (4) COPD (chronic obstructive pulmonary disease) ICD Code: J44.9 Status: Acute Assessment and Plan 1. 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 CT Head w/ no acute findings. Dr Carlin neurology consulted in the ED, he recommended TPA, however pt and family declined thrombolysis or thrombectomy. Start ASA-caution with h/ o GI Bleed. Resume home Statin. MRI/ MRA reviewed, findings discussed with Dr Dahl neurology, no acute ischemic changes. 2D ECHO, Holter monitor, further work up per neuro. ESR elevated suspected temporal arteritis Neurology following, appreciate recommendations. 2. Headache: S/p Tylenol, currently improved. Symptom onset shortly before slurred speech/facial droop. Analgesics as needed. 3. HTN: BP 170's systolic. Will allow for permissive HTN, hold home medications. 4. COPD: Chronic Obstructive Respiratory Failure. Stable. DuoNeb prn. DVT Prophylaxis: SCD/Teds. CM consult for DC planning as needed. Plan for SNF Discussed with the patient and the nurse. Problem Qualifiers (1) TIA (transient ischemic attack): Qualified Code: G45.9 - Transient cerebral ischemia, unspecified type (2) HTN (hypertension): Qualified Code: I10 - Essential hypertension Alicia Rodriguez MD January 30, 2017 13:00
[2017-01-30 14:13] LABS: BLOOD, URINE NEG (NEG); COMMENT (UR) CULT NOT INDICATED; CULTURE IF INDICATED CULT NOT INDICATED; GLUCOSE,URINE NEG (NEG); KETONE, URINE NEG (NEG); NITRITE,URINE NEG (NEG); PH, URINE 5.5 (5.0-8.5); SQUAMOUS EPITHELIAL CELL URINE <1 /hpf (0-5); URINE COLOR LIGHT-YELLOW (YELLW/STRAW)
[2017-01-31] VITALS (7 sets, daily range): BP systolic 120–138; BP diastolic 59–65; PULSE 59–65; RESP 18–20; TEMP 97.4–98.3; O2SAT 95–99
[2017-01-31] MEDS: ASPIRIN EC 81 MG TABEC PO SCH (08:34)
[2017-01-31] MEDS: ATORVASTATIN 40 MG TAB PO SCH (08:34)
[2017-01-31] MEDS: CLOPIDOGREL 75 MG TAB PO SCH (08:34)
[2017-01-31] MEDS: BUDESONIDE-FORMOTEROL 160/4.5 MCG INHALER INH SCH ×2 (08:35→23:02)
[2017-01-31] MEDS: SODIUM CHLOR 0.9% 1000 ML INJ 1,000 ML IV SCH ×3 (08:36→19:29)
[2017-01-31] MEDS: SODIUM CHLORIDE 0.9% FLUSH 10 ML FLUSH IV FLUSH SCH ×2 (08:36→23:03)
[2017-01-31 09:18] LABS: AMPHETAMINE, URINE NEG (NEG); BARBITURATES, URINE NEG (NEG); COCAINE, URINE NEG (NEG)
--- NOTE | 2017-01-31 09:30 | MG ---
cc: AURY SEGURA Sex: [id number] Hyperventilation not performed. Mastoid fluid. Headache, nausea and vomiting, aphasia, facial droop. Slurred speech. MEDICATIONS: Lipitor Aspirin Plavix DESCRIPTION: An 8 Hz 60 microvolt symmetric posterior rhythm is noted. The recording overall is synchronous and symmetric. Photic stimulation was performed without significant posterior driving. No hemisphere asymmetries are noted. The patient evidently fell asleep but did not reach stage II sleep. IMPRESSION Normal awake and sleep EEG, no evidence for focal or diffuse abnormality. MD SCTOT Farah/MOE /8:32 AM /9:20 AM
--- NOTE | 2017-01-31 12:40 | HHI.PR ---
Subjective Remarks Says she takes flonase at home for allergic rhinitis and is asking for it. Says headache is improving. Says she is still unsteady. No new motor deficit. No sensory deficit. denies cp, sob. No n/v/d/c. Objective Vitals Vital Signs Date Time Temp Pulse Resp B/P Pulse Ox O2 Delivery O2 Flow Rate FiO2 01/31/17 08:09 97.7 64 18 138/65 97 01/31/17 04:00 98.0 63 20 123/65 98 01/31/17 00:00 97.9 60 20 129/59 98 01/30/17 22:23 94 Nasal Cannula 2.00 01/30/17 21:30 58 01/30/17 20:00 97.8 66 20 153/70 100 01/30/17 16:00 97.8 63 18 115/54 98 01/30/17 12:30 98 Nasal Cannula 2.00 I/O 01/30/17 01/30/17 01/30/17 01/31/17 01/31/17 01/31/17 07:00 15:00 23:00 07:00 15:00 23:00 Intake Total 1050 ml 720 ml 240 ml Output Total 500 ml Balance 550 ml 720 ml 240 ml Intake Oral 200 ml 720 ml 240 ml IV Total 750 ml Other 100 ml Output Urine Total 500 ml # Voids 1 3 2 1 # Bowel Movements 0 0 0 Result Diagram: 01/29/1772001/29/17720 Imaging Last Impressions Neck Magnetic Resonance Angiography 01/29/17831 Signed Impressions: Service Date/Time: Sunday, January 29, 2017 11:21 - CONCLUSION: No evidence of carotid stenosis Te Moreno MD Head Magnetic Resonance Angiography 01/29/17831 Signed Impressions: Service Date/Time: Sunday, January 29, 2017 11:21 - CONCLUSION: 1. No large or central vessel occlusion identified. 2. Incidental hypoplastic left vert. Kane Frost MD Brain MRI 01/29/17831 Signed Impressions: Service Date/Time: Sunday, January 29, 2017 11:21 - CONCLUSION: 1. No acute intracranial abnormality. 2. Small nonspecific scattered white matter lesions. These likely relate to chronic small vessel ischemic change. 3. Fluid signal involving the mastoid air cells bilaterally. Clinical evaluation for any signs of acute mastoiditis suggested. Carl Mix Jr., MD Head CT 01/28/17 0000 Signed Impressions: Service Date/Time: January 20:05 - CONCLUSION: No acute intracranial abnormality is seen. Te Palafox MD Chest X-Ray 01/28/17 0000 Signed Impressions: Service Date/Time: January 21:21 - CONCLUSION: Linear density at the medial left base likely related to atelectasis or mild consolidation. Te Palafox MD Objective Remarks GENERAL: Elderly white female in no acute distress. +Mild slurred speech, at baseline. HEENT: PERRLA, EOMI. No scleral icterus or conjunctival pallor. No lid lag. + right facial droop, at baseline. CARDIOVASCULAR: Regular rate and rhythm. No obvious murmurs to auscultation. No chest tenderness to palpation. RESPIRATORY: No obvious rhonchi or wheezing. Clear to auscultation. Breath sounds equal bilaterally. GASTROINTESTINAL: Abdomen soft, non-tender, nondistended. BS normal. MUSCULOSKELETAL: Extremities without clubbing, cyanosis, or edema. No obvious deformities. NEUROLOGICAL: Awake, alert and oriented x4. No new focal neurologic deficits. Moving both upper and lower extremities spontaneously. A/P Problem List: (1) TIA (transient ischemic attack) ICD Code: G45.9 Status: Acute (2) HTN (hypertension) ICD Code: I10 Status: Acute (3) Headache ICD Code: R51 Status: Acute (4) COPD (chronic obstructive pulmonary disease) ICD Code: J44.9 Status: Acute Assessment and Plan 1. 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 CT Head w/ no acute findings. Dr Carlin neurology consulted in the ED, he recommended TPA, however pt and family declined thrombolysis or thrombectomy. Start ASA-caution with h/ o GI Bleed. Resume home Statin. MRI/ MRA reviewed, findings discussed with Dr Dahl neurology, no acute ischemic changes. 2D ECHO, Holter monitor, further work up per neuro. ESR elevated suspected temporal arteritis, however CRP is normal Plan for CTA, per neurology patient can be DC if CTA normal, oreferabbly to SNF if possible as patient is unsteady. Neurology following, appreciate recommendations. 2. Headache: S/p Tylenol, currently improved. Symptom onset shortly before slurred speech/facial droop. Analgesics as needed. Patient with intermittent headache. 3. HTN: BP 170's systolic. Will allow for permissive HTN, hold home medications. 4. COPD: Chronic Obstructive Respiratory Failure. Stable. DuoNeb prn. DVT Prophylaxis: SCD/Teds. CM consult for DC planning as needed. Plan for SNF Discussed with the patient and the nurse. Problem Qualifiers (1) TIA (transient ischemic attack): Qualified Code: G45.9 - Transient cerebral ischemia, unspecified type (2) HTN (hypertension): Qualified Code: I10 - Essential hypertension Alicia Rodriguez MD January 31, 2017 12:40
[2017-01-31] MEDS: FLUTICASONE PROPIONATE 50 MCG/ACT 16 GM NASAL SPRAY NASAL SCH ×2 (14:13→23:03)
--- NOTE | 2017-01-31 15:22 | HHI.PR ---
Objective Vital Signs Date Time Temp Pulse Resp B/P Pulse Ox O2 Delivery O2 Flow Rate FiO2 01/31/17 12:00 97.4 63 20 120/62 97 01/31/17 08:09 97.7 64 18 138/65 97 01/31/17 04:00 98.0 63 20 123/65 98 01/31/17 00:00 97.9 60 20 129/59 98 01/30/17 22:23 94 Nasal Cannula 2.00 01/30/17 21:30 58 01/30/17 20:00 97.8 66 20 153/70 100 01/30/17 16:00 97.8 63 18 115/54 98 I/O 01/30/17 01/30/17 01/30/17 01/31/17 01/31/17 01/31/17 07:00 15:00 23:00 07:00 15:00 23:00 Intake Total 1050 ml 720 ml 240 ml Output Total 500 ml Balance 550 ml 720 ml 240 ml Intake Oral 200 ml 720 ml 240 ml IV Total 750 ml Other 100 ml Output Urine Total 500 ml # Voids 1 3 2 1 2 # Bowel Movements 0 0 0 1 Result Diagram: 01/29/1772001/29/1721 Other Results crp nl us neg Objective Remarks awake alert face and speech nl gait tends to take a step back but rhomberg neg and with pull back she does well Assessment and Plan Assessment and Plan imp tia? no patterson today has not been having patterson but has been having tenderness or temples and forehead for a month and esr inc but crp nl no old cva major on mri may have some r mca dz? cta check PEND fuy holter plavix asa 81 and statin for now ldl 127 STILL MINIMAL TENDER TEMPLES I WILL DEFER TO MED TEAM IF THEY THINK SHE NEEDS TEMP ARTERY BX OR NOT WITH NL CRP LESS LIKELY TA check eeg NL OW NEURO GALE IF CTA NEG COULD DC HOME OR TO REHAB A LITTLE UNSTEADY ON FEET Fransico Welsh MD January 31, 2017 15:21
[2017-01-31] MEDS ORDERED: ACETAMINOPHEN/HYDROcodone 325 MG/5 MG TAB PO PRN (16:15)
[2017-02-01] VITALS (7 sets, daily range): BP systolic 115–179; BP diastolic 59–82; PULSE 58–71; RESP 18–20; TEMP 96.3–98.4; O2SAT 94–98
[2017-02-01] MEDS: SODIUM CHLOR 0.9% 1000 ML INJ 1,000 ML IV SCH ×2 (03:12→05:29)
--- NOTE | 2017-02-01 08:26 | HHI.PR ---
Objective Vital Signs Date Time Temp Pulse Resp B/P Pulse Ox O2 Delivery O2 Flow Rate FiO2 02/01/17 06:25 97.5 58 18 116/65 97 02/01/17 00:00 98.2 61 18 115/59 98 01/31/17 21:30 65 01/31/17 20:00 98.3 65 18 134/64 99 01/31/17 16:15 97.5 59 20 132/60 95 01/31/17 12:00 97.4 63 20 120/62 97 I/O 01/31/17 01/31/17 01/31/17 02/01/17 02/01/17 02/01/17 07:00 15:00 23:00 07:00 15:00 23:00 Intake Total 960 ml Balance 960 ml Intake Oral 960 ml # Voids 1 2 3 1 # Bowel Movements 0 1 1 0 Result Diagram: 01/29/17 0721 01/29/17 0721 Objective Remarks awake alert face and speech nl no patterson now for two days Assessment and Plan Assessment and Plan imp tia? no patterson today has not been having patterson but has been having tenderness or temples and forehead for a month and esr inc but crp nl no old cva major on mri may have some r mca dz? fu holter plavix asa 81 and statin for now ldl 127 STILL MINIMAL TENDER TEMPLES I WILL DEFER TO MED TEAM IF THEY THINK SHE NEEDS TEMP ARTERY BX OR NOT WITH NL CRP LESS LIKELY TA check eeg NL if no ta bx done COULD DC HOME OR TO REHAB A LITTLE UNSTEADY ON FEET Fransico Welsh MD February 01, 2017 08:26
[2017-02-01] MEDS: ASPIRIN EC 81 MG TABEC PO SCH (08:52)
[2017-02-01] MEDS: CLOPIDOGREL 75 MG TAB PO SCH (08:52)
[2017-02-01] MEDS: ATORVASTATIN 40 MG TAB PO SCH (08:52)
[2017-02-01] MEDS: BUDESONIDE-FORMOTEROL 160/4.5 MCG INHALER INH SCH ×2 (08:53→20:40)
[2017-02-01] MEDS: SODIUM CHLORIDE 0.9% FLUSH 10 ML FLUSH IV FLUSH SCH ×2 (08:53→20:41)
[2017-02-01] MEDS: FLUTICASONE PROPIONATE 50 MCG/ACT 16 GM NASAL SPRAY NASAL SCH ×2 (08:53→20:40)
[2017-02-01] MEDS ORDERED: LIDOCAINE 1%/EPINEPHrine 1:100,000 SOLN 20 ML VIAL ONE (10:08)
--- NOTE | 2017-02-01 11:31 | HM ---
Date Performed: 01/29/2017 Time Performed: 15:12:00 HOOKUP DATE: 01/29/17 03:12:00 PM Fri ANALYSIS START TIME: 01/29/2017 3:17:00 PM ANALYSIS END TIME: 01/30/2017 3:15:36 PM PATIENT AGE: 76 PATIENT HEIGHT PATIENT WEIGHT DRUG LIST PATIENT DIAGNOSIS TEST NARRATIVE: The patient's average heart rate was 60 BPM. Heart rates greater than 120 B PM were noted < 1% of the time. Heart rates less than 50 BPM were noted 2% of the time. No pause s exceeding 2.0 seconds were noted. 5 ventricular ectopics, which represented < 1% of the total b eat count, were noted. The highest ventricular ectopic frequency occurred from 03:00 AM to 04:00 AM Sat. During this time 3 VE(s) occurred. Ventricular ectopics were observed as 2 isolated beat(s) an d as 1 run(s). 33 supraventricular ectopics, which represented < 1% of the total beat count, were noted. The highest supraventricular ectopic frequency occurred from 09:00 AM to 10:00 AM Sat. Dur ng this time 11 SVE(s) occurred. No episodes of ST depression (defined as -1.0 mm or more) were n oted in channel 1. No episodes of ST depression (defined as -1.0 mm or more) were noted in channel 2 . No episodes of ST depression (defined as -1.0 mm or more) were noted in channel 3. TEST INTERPRETATION: Underlying Sinus rhythm Episodes of SVT Signed by : Dov Tan
[2017-02-01 13:25] LABS: ALPHA 1 GLOBULIN 0.18 GM/DL (0.11-0.29)
[2017-02-01 13:26] LABS: ALPHA 2 GLOBULIN 0.83 GM/DL (0.22-1.00); BETA GLOBULINS (SPE) 0.66 GM/DL (0.53-1.03)
[2017-02-01 14:11] LABS: RAPID PLASMA REAGIN SCREEN NON-REACTIVE (NON-REACTVE)
[2017-02-01 14:47] LABS: ANA SCREEN NEG (NEG)
--- NOTE | 2017-02-01 17:05 | HHI.DS ---
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 Pt reports c/o severe headache prior to symptoms. Upon arrival to ER symptoms had improved, currently w/ facial droop and expressive aphasia back to baseline. On arrival, BP 142/83, HR 73, O2 sat 100% on 2L NC, Afebrile. CBC essentially unremarkable. Chemistry unremarkable. Troponin negative. CXR with no acute findings. CT Head negative. Dr. Carlin consulted as Stroke Alert, recommended TPA, however pt and family refused TPA or thrombectomy. Not on anticoagulation at this time. CBC/BMP: 01/29/17 0721 01/29/17 0721 Significant Findings Laboratory Tests Test 01/30/17 01/30/17 08:20 13:32 Erythrocyte Sedimentation Rate 73 mm/hr (0-30) Urine Opiates Screen POS (NEG) Imaging Last Impressions Neck Magnetic Resonance Angiography 01/29/17831 Signed Impressions: Service Date/Time: Sunday, January 29, 2017 11:21 - CONCLUSION: No evidence of carotid stenosis Te Moreno MD Head Magnetic Resonance Angiography 01/29/17831 Signed Impressions: Service Date/Time: Sunday, January 29, 2017 11:21 - CONCLUSION: 1. No large or central vessel occlusion identified. 2. Incidental hypoplastic left vert. Kane Frost MD Brain MRI 01/29/17831 Signed Impressions: Service Date/Time: Sunday, January 29, 2017 11:21 - CONCLUSION: 1. No acute intracranial abnormality. 2. Small nonspecific scattered white matter lesions. These likely relate to chronic small vessel ischemic change. 3. Fluid signal involving the mastoid air cells bilaterally. Clinical evaluation for any signs of acute mastoiditis suggested. Carl Mix Jr., MD Head CT 01/28/17 0000 Signed Impressions: Service Date/Time: January 20:05 - CONCLUSION: No acute intracranial abnormality is seen. Te Palafox MD Chest X-Ray 01/28/17 Signed Impressions: Service Date/Time: January 21:21 - CONCLUSION: Linear density at the medial left base likely related to atelectasis or mild consolidation. Te Palafox MD PE at Discharge GENERAL: Elderly white female in no acute distress. +Mild slurred speech, at baseline. HEENT: PERRLA, EOMI. No scleral icterus or conjunctival pallor. No lid lag. + right facial droop, at baseline. CARDIOVASCULAR: Regular rate and rhythm. No obvious murmurs to auscultation. No chest tenderness to palpation. RESPIRATORY: No obvious rhonchi or wheezing. Clear to auscultation. Breath sounds equal bilaterally. GASTROINTESTINAL: Abdomen soft, non-tender, nondistended. BS normal. MUSCULOSKELETAL: Extremities without clubbing, cyanosis, or edema. No obvious deformities. NEUROLOGICAL: Awake, alert and oriented x4. No new focal neurologic deficits. Moving both upper and lower extremities spontaneously. Hospital Course 1. 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 CT Head w/ no acute findings. Dr Carlin neurology consulted in the ED, he recommended TPA, however pt and family declined thrombolysis or thrombectomy. Start ASA-caution with h/ o GI Bleed. Resume home Statin. MRI/ MRA reviewed, findings discussed with Dr Dahl neurology, no acute ischemic changes. 2D ECHO, Holter monitor, further work up per neuro. ESR elevated suspected temporal arteritis, however CRP is normal, less likely TA. Allergic to contrast media and CTA was DCd. Had a normal carotid US a while ago with her PCP back home. Will follow up as OP with neurology. Had meeting with rehab, poss DC to rehab today. as patient is unsteady. Neurology following, appreciate recommendations. 2. Headache: S/p Tylenol, currently resolved. Symptom onset shortly before slurred speech/facial droop. Analgesics as needed. Patient with intermittent headache. 3. HTN: BP 170's systolic. Will allow for permissive HTN, hold home medications. 4. COPD: Chronic Obstructive Respiratory Failure. Stable. DuoNeb prn. DVT Prophylaxis: SCD/Teds. CM consult for DC planning to SNF Patient improved. She was DC to SNF in fairly good condition, to follow up as OP with PCP and consultants. Pt Condition on Discharge: Stable Discharge Disposition: Discharge to SNF Discharge Time: > 30 minutes Discharge Instructions DIET: Follow Instructions for: Heart Healthy Diet Activities you can perform: Regular-No Restrictions Follow up Referrals: Neurology - 1 Week with Fransico Welsh MD PCP Follow-up - 2-3 Days New Medications: Hydrocodone-Acetaminophen ([place]banse) 5-325 mg Tab 1 TAB PO Q8HR PRN PAIN #10 Ref 0 TAB Continued Medications: Ergocalciferol (Vitamin D2) 2,000 Unit Tab 1.25 MG PO DAILY Nutritional Supplement Ref 0 TAB Fluticasone Nasal Bascom (Flonase Nasal Bascom) 50 Mcg/Act Bascom 50 MCG EACH NARE BID Allergies #1 Ref 0 BOTTLE Fluticasone-Salmeterol Inh (Advair Diskus Inh) 250-50 Mcg/Blist Aer 1 PUFF INH BID Rinse mouth after use. #1 Ref 0 INHALER Guaifenesin (Guaifenesin) 100 Mg/5 Ml Syp 5 ML Levothyroxine (Levothyroxine) 50 Mcg Tab 50 MCG PO DAILY Thyroid #30 Ref 0 TAB Lisinopril (Lisinopril) 10 Mg Tab 10 MG PO DAILY #30 Ref 0 TAB Melatonin (Melatonin) 10 Mg Tab 10 MG PO HS PRN SLEEP Ref 0 TAB Ondansetron (Zofran) 4 Mg Tab 4 MG PO Q6HR PRN NAUSEA OR VOMITING Ref 0 TAB Oxybutynin (Ditropan) 5 Mg Tab 10 MG PO DAILY Urinary Symptom Managemen #90 Ref 0 TAB Polyvinyl Alcohol-Povidone Opth Drops (Artificial Tears Opth Drops) 0.5-0.6% Soln 1-2 DROP EACH EYE PRN PRN DRY EYE #15 Ref 0 ML Rosuvastatin (Rosuvastatin) 20 Mg Tab 20 MG PO DAILY Cholesterol Management #30 Ref 0 TAB Alicia Rodriguez MD February 01, 2017 17:05
[2017-02-01] MEDS ORDERED: NORC5TAB PO (17:07)
--- NOTE | 2017-02-01 17:21 | HHI.PR ---
Subjective Remarks Seen earlier today. Less headache. No new deficit. Feels improving. Says she is allergic to contrast media and CTA was DCd. Had a normal carotid US a while ago with her PCP back home. Will follow up as OP with neurology. Had meeting with rehab, poss DC to rehab today. Objective Vitals Vital Signs Date Time Temp Pulse Resp B/P Pulse Ox O2 Delivery O2 Flow Rate FiO2 02/01/17 16:46 98.4 70 18 150/69 94 02/01/17 15:27 62 02/01/17 13:02 96.3 70 18 179/74 98 02/01/17 08:22 97.1 59 20 126/65 95 02/01/17 06:25 97.5 58 18 116/65 97 02/01/17 00:00 98.2 61 18 115/59 98 01/31/17 21:30 65 01/31/17 20:00 98.3 65 18 134/64 99 I/O 01/31/17 01/31/17 01/31/17 02/01/17 02/01/17 02/01/17 07:00 15:00 23:00 07:00 15:00 23:00 Intake Total 960 ml Balance 960 ml Intake Oral 960 ml # Voids 1 2 3 1 2 # Bowel Movements 0 1 1 0 Result Diagram: 01/29/1772001/29/17720 Imaging Last Impressions Neck Magnetic Resonance Angiography 01/29/17831 Signed Impressions: Service Date/Time: Sunday, January 29, 2017 11:21 - CONCLUSION: No evidence of carotid stenosis Te Morneo MD Head Magnetic Resonance Angiography 01/29/17831 Signed Impressions: Service Date/Time: Sunday, January 29, 2017 11:21 - CONCLUSION: 1. No large or central vessel occlusion identified. 2. Incidental hypoplastic left vert. Kane Frost MD Brain MRI 01/29/17831 Signed Impressions: Service Date/Time: Sunday, January 29, 2017 11:21 - CONCLUSION: 1. No acute intracranial abnormality. 2. Small nonspecific scattered white matter lesions. These likely relate to chronic small vessel ischemic change. 3. Fluid signal involving the mastoid air cells bilaterally. Clinical evaluation for any signs of acute mastoiditis suggested. Carl Mix Jr., MD Head CT 01/28/17 0000 Signed Impressions: Service Date/Time: January 20:05 - CONCLUSION: No acute intracranial abnormality is seen. Te Palafox MD Chest X-Ray 01/28/17 Signed Impressions: Service Date/Time: January 21:21 - CONCLUSION: Linear density at the medial left base likely related to atelectasis or mild consolidation. Te Palafox MD Objective Remarks GENERAL: Elderly white female in no acute distress. +Mild slurred speech, at baseline. HEENT: PERRLA, EOMI. No scleral icterus or conjunctival pallor. No lid lag. + right facial droop, at baseline. CARDIOVASCULAR: Regular rate and rhythm. No obvious murmurs to auscultation. No chest tenderness to palpation. RESPIRATORY: No obvious rhonchi or wheezing. Clear to auscultation. Breath sounds equal bilaterally. GASTROINTESTINAL: Abdomen soft, non-tender, nondistended. BS normal. MUSCULOSKELETAL: Extremities without clubbing, cyanosis, or edema. No obvious deformities. NEUROLOGICAL: Awake, alert and oriented x4. No new focal neurologic deficits. Moving both upper and lower extremities spontaneously. A/P Problem List: (1) TIA (transient ischemic attack) ICD Code: G45.9 Status: Acute (2) HTN (hypertension) ICD Code: I10 Status: Acute (3) Headache ICD Code: R51 Status: Acute (4) COPD (chronic obstructive pulmonary disease) ICD Code: J44.9 Status: Acute Assessment and Plan 1. 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 CT Head w/ no acute findings. Dr Carlin neurology consulted in the ED, he recommended TPA, however pt and family declined thrombolysis or thrombectomy. Start ASA-caution with h/ o GI Bleed. Resume home Statin. MRI/ MRA reviewed, findings discussed with Dr Dahl neurology, no acute ischemic changes. 2D ECHO, Holter monitor, further work up per neuro. ESR elevated suspected temporal arteritis, however CRP is normal, less likely TA. Allergic to contrast media and CTA was DCd. Had a normal carotid US a while ago with her PCP back home. Will follow up as OP with neurology. Had meeting with rehab, poss DC to rehab today. as patient is unsteady. Neurology following, appreciate recommendations. 2. Headache: S/p Tylenol, currently resolved. Symptom onset shortly before slurred speech/facial droop. Analgesics as needed. Patient with intermittent headache. 3. HTN: BP 170's systolic. Will allow for permissive HTN, hold home medications. 4. COPD: Chronic Obstructive Respiratory Failure. Stable. DuoNeb prn. DVT Prophylaxis: SCD/Teds. CM consult for DC planning as needed. Plan for SNF Discussed with the patient and the nurse. Problem Qualifiers (1) TIA (transient ischemic attack): Qualified Code: G45.9 - Transient cerebral ischemia, unspecified type (2) HTN (hypertension): Qualified Code: I10 - Essential hypertension Alicia Rodriguez MD February 01, 2017 17:21
[2017-02-02] VITALS: BP 139/65; PULSE 61; RESP 18; TEMP 97.1; O2SAT 96
[2017-02-02 04:00] VITALS: BP 113/63; PULSE 62; RESP 18; TEMP 96.7; O2SAT 95
[2017-02-02 08:19] VITALS: BP 155/72; PULSE 60; RESP 20; TEMP 97.6; O2SAT 94
[2017-02-02] MEDS: ASPIRIN EC 81 MG TABEC PO SCH (08:22)
[2017-02-02] MEDS: ATORVASTATIN 40 MG TAB PO SCH (08:23)
[2017-02-02] MEDS: CLOPIDOGREL 75 MG TAB PO SCH (08:23)
[2017-02-02] MEDS: BUDESONIDE-FORMOTEROL 160/4.5 MCG INHALER INH SCH (08:23)
[2017-02-02] MEDS: SODIUM CHLORIDE 0.9% FLUSH 10 ML FLUSH IV FLUSH SCH (08:23)
[2017-02-02] MEDS: FLUTICASONE PROPIONATE 50 MCG/ACT 16 GM NASAL SPRAY NASAL SCH (08:23)
--- NOTE | 2017-02-02 08:26 | HHI.PR ---
Subjective Remarks In the chair, eating breakfast. Says no headache today and feels much better. No n/v/d/c. No new motor or sensory deficit, no change in vision. Says she is still very unsteady . Plan for rehab. Objective Vitals Vital Signs Date Time Temp Pulse Resp B/P Pulse Ox O2 Delivery O2 Flow Rate FiO2 02/02/17 08:19 97.6 60 20 155/72 94 02/02/17 04:00 96.7 62 18 113/63 95 02/02/17 00:00 97.1 61 18 139/65 96 02/01/17 20:00 97.8 71 18 164/82 95 02/01/17 16:46 98.4 70 18 150/69 94 02/01/17 15:27 62 02/01/17 13:02 96.3 70 18 179/74 98 I/O 02/01/17 02/01/17 02/01/17 02/02/17 02/02/17 02/02/17 07:00 15:00 23:00 07:00 15:00 23:00 Intake Total 360 ml Balance 360 ml Intake Oral 360 ml # Voids 1 2 1 3 # Bowel Movements 0 Result Diagram: 01/29/1721 01/29/17720 Imaging Last Impressions Neck Magnetic Resonance Angiography 01/29/17831 Signed Impressions: Service Date/Time: Sunday, January 29, 2017 11:21 - CONCLUSION: No evidence of carotid stenosis Te Moreno MD Head Magnetic Resonance Angiography 01/29/17831 Signed Impressions: Service Date/Time: Sunday, January 29, 2017 11:21 - CONCLUSION: 1. No large or central vessel occlusion identified. 2. Incidental hypoplastic left vert. Kane Frost MD Brain MRI 01/29/17831 Signed Impressions: Service Date/Time: Sunday, January 29, 2017 11:21 - CONCLUSION: 1. No acute intracranial abnormality. 2. Small nonspecific scattered white matter lesions. These likely relate to chronic small vessel ischemic change. 3. Fluid signal involving the mastoid air cells bilaterally. Clinical evaluation for any signs of acute mastoiditis suggested. Carl Mix Jr., MD Head CT 01/28/17 0000 Signed Impressions: Service Date/Time: January 20:05 - CONCLUSION: No acute intracranial abnormality is seen. Te Palafox MD Chest X-Ray 01/28/17 0000 Signed Impressions: Service Date/Time: January 21:21 - CONCLUSION: Linear density at the medial left base likely related to atelectasis or mild consolidation. Te Palafox MD Objective Remarks GENERAL: Elderly white female in no acute distress. +Mild slurred speech, at baseline. HEENT: PERRLA, EOMI. No scleral icterus or conjunctival pallor. No lid lag. + right facial droop, at baseline. CARDIOVASCULAR: Regular rate and rhythm. No obvious murmurs to auscultation. No chest tenderness to palpation. RESPIRATORY: No obvious rhonchi or wheezing. Clear to auscultation. Breath sounds equal bilaterally. GASTROINTESTINAL: Abdomen soft, non-tender, nondistended. BS normal. MUSCULOSKELETAL: Extremities without clubbing, cyanosis, or edema. No obvious deformities. NEUROLOGICAL: Awake, alert and oriented x4. No new focal neurologic deficits. Moving both upper and lower extremities spontaneously. Procedures none A/P Problem List: (1) TIA (transient ischemic attack) ICD Code: G45.9 Status: Acute (2) HTN (hypertension) ICD Code: I10 Status: Acute (3) Headache ICD Code: R51 Status: Acute (4) COPD (chronic obstructive pulmonary disease) ICD Code: J44.9 Status: Acute Assessment and Plan 1. 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 CT Head w/ no acute findings. Dr Carlin neurology consulted in the ED, he recommended TPA, however pt and family declined thrombolysis or thrombectomy. Start ASA-caution with h/ o GI Bleed. Resume home Statin. MRI/ MRA reviewed, findings discussed with Dr Dahl neurology, no acute ischemic changes. 2D ECHO, Holter monitor, further work up per neuro. ESR elevated suspected temporal arteritis, however CRP is normal, less likely TA. Allergic to contrast media and CTA was DCd. Had a normal carotid US a while ago with her PCP back home. Will follow up as OP with neurology. Had meeting with rehab, poss DC to rehab today. as patient is unsteady. Neurology following, appreciate recommendations. 2. Headache: S/p Tylenol, currently resolved. Symptom onset shortly before slurred speech/facial droop. Analgesics as needed. Patient with intermittent headache. 3. HTN: BP 170's systolic. Will allow for permissive HTN, hold home medications. 4. COPD: Chronic Obstructive Respiratory Failure. Stable. DuoNeb prn. DVT Prophylaxis: SCD/Teds. CM consult for DC planning as needed. Plan for SNF Discussed with the patient and the nurse. Problem Qualifiers (1) TIA (transient ischemic attack): Qualified Code: G45.9 - Transient cerebral ischemia, unspecified type (2) HTN (hypertension): Qualified Code: I10 - Essential hypertension Alicia Rodriguez MD February 02, 2017 08:26
[2017-02-02 12:45] VITALS: BP 134/62; PULSE 65; RESP 20; TEMP 96.7; O2SAT 96
[2017-02-02 15:17] VITALS: PULSE 59
[2017-02-04 03:49] LABS: VITAMIN B6 8.1 ng/mL (2.1-21.7)
== END 2017-02-02 15:32 | DRG 69 ==
LOC: NEPC 19:55 → NEDA 21:17 → N05B 22:28
PROVIDERS: ADMIT Hospitalist; ATTEND Hospitalist
DX: G45.9 Transient cerebral ischemic attack, unspecified (principal); J96.90 Respiratory failure, unspecified, unspecified whether with hypoxia or hypercapnia; I50.9 Heart failure, unspecified; I11.0 Hypertensive heart disease with heart failure; J44.9 Chronic obstructive pulmonary disease, unspecified; E03.9 Hypothyroidism, unspecified; R29.702 NIHSS score 2
CPT/HCPCS: 70450; 70544; 70548; 70553; 71010; 80053; 80061; 80307; 81001; 82435; 82550; 82565; 82607; 82947; 83921; 84132; 84165; 84207; 84295; 84425; 84439; 84443; 84484; 84520; 85025; 85384; 85610; 85652; 85730; 86038; 86140; 86430; 86592; 86850; 86900; 86901; 93005; 93225; 93226; 93306; 95819; 96360; A9579; J2270; J2405; J7030; P9612

== ENCOUNTER 2017-05-22 19:02 | Inpatient (IN) | payer MEDICARE, OTHER ==
[2017-05-22] VITALS (7 sets, daily range): BP systolic 150–179; BP diastolic 79–85; PULSE 57–70; RESP 18; TEMP 96.9–98.6; O2SAT 97–98
[~2017-05-22] VITALS: Ht 139.7 cm; Wt 77.0 kg
[~2017-05-22 19:02] MED LIST: ADVA250A INH; ERGO2000 PO; FLUT1SPR5 EACH NARE; GUAI100S10; LEVO50TA4 PO; LISI10TA3 PO; MELA1TAB18 PO; NORC5TAB PO; OXYB5TAB10 PO; POLYSOL14 EACH EYE; ROSU1TAB8 PO; ZOFR4TAB PO
[2017-05-22] MEDS ORDERED: SODIUM CHLORIDE 0.9% FLUSH 10 ML FLUSH IVF PRN (19:15)
--- NOTE | 2017-05-22 19:17 | PD ---
HPI Chief Complaint: numbness Time Seen by Provider: 19:09 Travel History International Travel<30 days: No Contact w/Intl Traveler<30days: No Traveled to known affect area: No History of Present Illness HPI 76-year-old female with history of CVA, hypertension, hypercholesterolemia, carotid endarterectomy on the left, here for evaluation of right-sided head pain and right facial numbness. Symptoms started earlier this morning. She states that the symptoms feel similar to how she felt prior to her most recent stroke a few months ago. She denies paresthesias or motor deficits. No fevers or recent illness. No new vision changes. Right-sided headache is moderate, described as sharp. Her neurologist is Dr. Hood. [facility] Past Medical History Asthma: Yes Autoimmune Disease: No Heart Rhythm Problems: No ("Irregular Heartbeat at Times") Cancer: No Cardiovascular Problems: Yes (CHF) High Cholesterol: Yes Chest Pain: No Congestive Heart Failure: Yes COPD: Yes Cerebrovascular Accident: Yes (old stoke 2014 left her with ride sided facial droop) Diabetes: No Diminished Hearing: No Endocrine: No GERD: Yes Genitourinary: No Hiatal Hernia: No Immune Disorder: No Kidney Stones: No Psychiatric: No Reproductive: No Respiratory: Yes Renal Failure: No Sleep Apnea: Yes Thyroid Disease: Yes Ulcer: No : 6 Para: 6 Past Surgical History Abdominal Surgery: Yes (Gallbladder Surgery/ Date unknown, Hernia Repair/Date unknown) AICD: No Arteriovenous Shunt: No Cardiac Surgery: No Cholecystectomy: Yes Ear Surgery: No Endocrine Surgery: No Eye Surgery: Yes (Cataract Surgery-Date Unknown) Genitourinary Surgery: Yes Gynecologic Surgery: Yes (Hysterectomy) Hysterectomy: Yes Insulin Pump: No Joint Replacement: No Oral Surgery: No Pacemaker: No Thoracic Surgery: No Other Surgery: Yes (hiatal hernia surgery ) Social History Alcohol Use: No Tobacco Use: No Substance Use: No Allergies-Medications (Allergen,Severity, Reaction): Coded Allergies: Iodinated Contrast- Oral and IV Dye (Verified Allergy, Unknown, 05/22/17) clindamycin (Unverified Allergy, Unknown, 05/22/17) diatrizoate meglumine (Unverified Allergy, Unknown, 05/22/17) gadobenic acid (Unverified Allergy, Unknown, 05/22/17) gadodiamide (Unverified Allergy, Unknown, 05/22/17) gadoteridol (Unverified Allergy, Unknown, 05/22/17) iodixanol (Unverified Allergy, Unknown, 05/22/17) iohexol (Unverified Allergy, Unknown, 05/22/17) latex (Verified Allergy, Unknown, Rash, 05/22/17) penicillin G (Unverified Allergy, Unknown, 05/22/17) Reported Meds & Prescriptions Reported Meds & Active Scripts Active Reported Clopidogrel (Clopidogrel Bisulfate) 75 Mg Tab 75 Mg PO DAILY Atorvastatin (Atorvastatin Calcium) 40 Mg Tab 40 Mg PO HS Omeprazole 40 Mg Cap 40 Mg PO DAILY Levothyroxine (Levothyroxine Sodium) 50 Mcg Tab 50 Mcg PO DAILY Lisinopril 10 Mg Tab 10 Mg PO DAILY Review of Systems Except as stated in HPI: all other systems reviewed are Neg Physical Exam Narrative GENERAL: Well-developed, well-nourished, awake, alert, comfortable, no apparent distress. SKIN: Focused skin assessment warm/dry. HEAD: Atraumatic. Normocephalic. No temporal artery tenderness. EYES: Pupils equal and round. No scleral icterus. No injection or drainage. ENT: No nasal bleeding or discharge. Mucous membranes pink and moist. NECK: Trachea midline. No JVD. CARDIOVASCULAR: Regular rate and rhythm. RESPIRATORY: No accessory muscle use. Clear to auscultation. Breath sounds equal bilaterally. GASTROINTESTINAL: Abdomen soft, non-tender, nondistended. Hepatic and splenic margins not palpable. MUSCULOSKELETAL: No obvious deformities. No clubbing. No cyanosis. No edema. NEUROLOGICAL: Awake and alert. Slight right facial droop. Motor grossly within normal limits. Normal speech. No pronator drift. Normal finger-nose- finger test bilaterally. PSYCHIATRIC: Appropriate mood and affect; insight and judgment normal. Data Data Last Documented VS Vital Signs Date Time Temp Pulse Resp B/P (MAP) Pulse Ox O2 Delivery O2 Flow Rate FiO2 05/22/17 20:28 58 18 157/79 (105) 98 Room Air 05/22/17 19:15 98.6 Orders Orders Prothrombin Time / Inr (Pt) (05/22/17 19:15) Act Partial Throm Time (Ptt) (05/22/17 19:15) Complete Blood Count With Diff (05/22/17 19:15) Comprehensive Metabolic Panel (05/22/17 19:15) Urinalysis - C+S If Indicated (05/22/17 19:15) Ct Brain W/O Iv Contrast(Rout) (05/22/17 19:15) Ecg Monitoring (05/22/17 19:15) Iv Access Insert/Monitor (05/22/17 19:15) Oximetry (05/22/17 19:15) Sodium Chloride 0.9% Flush (Ns Flush) (05/22/17 19:15) Aspirin Ec (Ecotrin Ec) (05/22/17 21:00) Labs Laboratory Tests Test 05/22/17 19:45 05/22/17 20:17 White Blood Count 9.1 TH/MM3 Red Blood Count 4.08 MIL/MM3 Hemoglobin 12.0 GM/DL Hematocrit 36.5 % Mean Corpuscular Volume 89.3 FL Mean Corpuscular Hemoglobin 29.3 PG Mean Corpuscular Hemoglobin Concent 32.8 % Red Cell Distribution Width 12.9 % Platelet Count 209 TH/MM3 Mean Platelet Volume 8.4 FL Neutrophils (%) (Auto) 53.7 % Lymphocytes (%) (Auto) 36.2 % Monocytes (%) (Auto) 6.1 % Eosinophils (%) (Auto) 2.9 % Basophils (%) (Auto) 1.1 % Neutrophils # (Auto) 4.8 TH/MM3 Lymphocytes # (Auto) 3.3 TH/MM3 Monocytes # (Auto) 0.6 TH/MM3 Eosinophils # (Auto) 0.3 TH/MM3 Basophils # (Auto) 0.1 TH/MM3 CBC Comment DIFF FINAL Differential Comment Prothrombin Time 10.5 SEC Prothromb Time International Ratio 1.0 RATIO Activated Partial Thromboplast Time 23.8 SEC Blood Urea Nitrogen 20 MG/DL Creatinine 0.89 MG/DL Random Glucose 95 MG/DL Total Protein 6.6 GM/DL Albumin 3.1 GM/DL Calcium Level 9.0 MG/DL Alkaline Phosphatase 88 U/L Aspartate Amino Transf (AST/SGOT) 19 U/L Alanine Aminotransferase (ALT/SGPT) 19 U/L Total Bilirubin 0.6 MG/DL Sodium Level 142 MEQ/L Potassium Level 4.0 MEQ/L Chloride Level 106 MEQ/L Carbon Dioxide Level 29.1 MEQ/L Anion Gap 7 MEQ/L Estimat Glomerular Filtration Rate 62 ML/MIN Urine Color YELLOW Urine Turbidity CLEAR Urine pH 6.5 Urine Specific [place] 1.010 Urine Protein NEG mg/dL Urine Glucose (UA) NEG mg/dL Urine Ketones NEG mg/dL Urine Occult Blood NEG Urine Nitrite NEG Urine Bilirubin NEG Urine Leukocyte Esterase SMALL Urine WBC 3-5 /hpf Urine Squamous Epithelial Cells 0-5 /hpf Urine Bacteria OCC /hpf Microscopic Urinalysis Comment CULT NOT INDICATED MDM Medical Decision Making Medical Screen Exam Complete: Yes Emergency Medical Condition: Yes Medical Record Reviewed: Yes Interpretation(s) EKG: Sinus, rate 71, normal axis, normal intervals, no acute ischemic abnormality. Differential Diagnosis CVA, intracranial abnormality, metabolic abnormality, UTI Narrative Course Vital signs show heart rate 70, blood pressure 179/85, pulse ox 97% on room air , oral temp of 98.6F. CBC is unremarkable. CMP is unremarkable. UA is not suggestive of UTI. CT head: No acute intracranial abnormality. Minimal right maxillary sinus mucosal thickening. Patient made aware of all findings. She is continuing to have numbness to her right face and has a slight right facial droop. There is no weakness to her upper or lower extremities. She does have history of CVA as well as left carotid endarterectomy. Given her symptoms, the patient will be admitted to the hospital for further CVA workup. Patient is already on Plavix. She will be given a full dose of aspirin here in the emergency department. Patient was made aware of all findings and plan for admission. Case discussed with hospitalist Dr. Samayoa who will admit the patient to her service. Diagnosis Primary Impression: Right facial numbness Additional Impression: Facial droop Admitting Information Admitting Physician Requests: Admit Julien Coleman MD May 22, 2017 19:17
[2017-05-22] MEDS ORDERED: ATOR40TA16 PO (19:54)
[2017-05-22] MEDS ORDERED: CLOP75TA PO (19:54)
[2017-05-22] MEDS ORDERED: OMEP40CA2 PO (19:54)
[2017-05-22 19:57] LABS: AUTOMATED NEUTROPHIL # 4.8 TH/MM3 (1.8-7.7); BASOPHIL # 0.1 TH/MM3 (0-0.2); BASOPHIL % 1.1 % (0.0-2.0); EOSINOPHIL # 0.3 TH/MM3 (0-0.4); EOSINOPHIL % 2.9 % (0.0-4.0); HEMATOCRIT 36.5 % (35.0-46.0); HEMO FLAGS DIFF FINAL; LYMPH % 36.2 % (9.0-44.0); LYMPHOCYTE # 3.3 TH/MM3 (1.0-4.8); MEAN CELL VOLUME 89.3 FL (80.0-100.0); MEAN CORPUSCULAR HEMOGLOBIN 29.3 PG (27.0-34.0); MEAN CORPUSCULAR HGB CONC 32.8 % (32.0-36.0); MONO % 6.1 % (0.0-8.0); NEUT % 53.7 % (16.0-70.0); PLATELET COUNT 209 TH/MM3 (150-450); RED BLOOD COUNT 4.08 MIL/MM3 (4.00-5.30); RED CELL DISTRIBUTION WIDTH 12.9 % (11.6-17.2); WHITE BLOOD COUNT 9.1 TH/MM3 (4.0-11.0)
[2017-05-22 20:09] LABS: CHLORIDE 106 MEQ/L (98-107); SODIUM (NA) 142 MEQ/L (136-145)
[2017-05-22 20:13] LABS: ANION GAP 7 MEQ/L (5-15); BICARBONATE 29.1 MEQ/L (21.0-32.0)
[2017-05-22 20:14] LABS: BLOOD UREA NITROGEN 20 MG/DL (7-18)
[2017-05-22 20:17] LABS: ALT (GPT) 19 U/L (10-53); AST (GOT) 19 U/L (15-37); GLOMERULAR FILTRATION RATE 62 ML/MIN (>89)
[2017-05-22 20:18] LABS: TOTAL BILIRUBIN ADULT 0.6 MG/DL (0.2-1.0)
[2017-05-22 20:20] LABS: ALKALINE PHOSPHATASE 88 U/L (45-117)
[2017-05-22 20:26] LABS: BLOOD, URINE NEG (NEG); GLUCOSE,URINE NEG (NEG); KETONE, URINE NEG (NEG); NITRITE,URINE NEG (NEG); PH, URINE 6.5 (5.0-8.5)
[2017-05-22 20:31] LABS: APTT (PATIENT) 23.8 SEC (24.3-30.1); PROTHROMBIN TIME - PATIENT 10.5 SEC (9.8-11.6)
[2017-05-22 20:32] LABS: URINE COLOR YELLOW (YELLW/STRAW)
[2017-05-22 20:33] LABS: BACTERIA, URINE OCC /hpf; COMMENT (UR) CULT NOT INDICATED; CULTURE IF INDICATED CULT NOT INDICATED; SQUAMOUS EPITHELIAL CELL URINE 0-5 /hpf (0-5)
--- NOTE | 2017-05-22 20:40 | RADRPT ---
EXAM DATE/TIME: 05/22/2017 19:57 [facility] COMPARISON: CT BRAIN W/O CONTRAST, January 28, 2017, 20:05. INDICATIONS : Right sided facial tingling. Headache RADIATION DOSE: 59.43 CTDIvol (mGy) MEDICAL HISTORY : Carotid stenosis. Cerebrovascular disease. SURGICAL HISTORY : Carotid endarterectomy. Discectomy, cervical. ENCOUNTER: Initial ACUITY: 1 day PAIN SCALE: 4/10 LOCATION: Right facial TECHNIQUE: Multiple contiguous axial images were obtained of the head. Using automated exposure control and adj ustment of the mA and/or kV according to patient size, radiation dose was kept as low as reasonably a chievable to obtain optimal diagnostic quality images. DICOM format image data is available electro nically for review and comparison. FINDINGS: CEREBRUM: The ventricles are normal for age. No evidence of midline shift, mass lesion, hemorrhage or acute in farction. No extra-axial fluid collections are seen. POSTERIOR FOSSA: The cerebellum and brainstem are intact. The 4th ventricle is midline. The cerebellopontine angle i s unremarkable. EXTRACRANIAL: The visualized portion of the orbits is intact. Minimal mucosal thickening is noted within the right maxillary sinus. SKULL: The calvaria is intact. No evidence of skull fracture. CONCLUSION: 1. No acute intracranial abnormality. 2. Minimal right maxillary sinus mucosal thickening. Neil Hargrove MD on May 22, 2017 at 20:37 Board Certified Radiologist. This report was verified electronically.
[2017-05-22] MEDS ORDERED: ASPIRIN EC 325 MG TABEC PO ONE (21:00)
[2017-05-22] MEDS: INSULIN ASPART SUPPLEMENTAL SCALE SQ SCH (21:00)
[2017-05-22] MEDS ORDERED: DEXTROSE 50% IN WATER 50 ML VIAL(D50) IV PUSH PRN (21:00)
[2017-05-22] MEDS ORDERED: ENALAPRILAT 1.25 MG/ML VIAL IV PRN (21:00)
[2017-05-22] MEDS ORDERED: SODIUM CHLORIDE 0.9% FLUSH 5 ML FLUSH IV FLUSH PRN (21:00)
[2017-05-22] MEDS ORDERED: GLUCAGON 1 MG/ML VIAL OTHER PRN (21:00)
[2017-05-22] MEDS: SODIUM CHLOR 0.9% 1000 ML INJ 1,000 ML IV SCH (21:55)
[2017-05-22] MEDS: SODIUM CHLORIDE 0.9% FLUSH 5 ML FLUSH IV FLUSH SCH (21:56)
--- NOTE | 2017-05-22 22:16 | EKG ---
Date Performed: 05/22/2017 Time Performed: 19:08:11 PTAGE: 76 years EKG: Sinus rhythm NORMAL ECG Compared to prior tracing no significant change DOCTOR: Errol Donaldson Interpretating Date/Time 05/22/2017 22:15:20
[2017-05-23] VITALS (7 sets, daily range): BP systolic 122–167; BP diastolic 74–86; PULSE 54–88; RESP 18; TEMP 96.9–97.4; O2SAT 93–98
[2017-05-23] MEDS: INSULIN ASPART SUPPLEMENTAL SCALE SQ SCH ×3 (06:33→11:00)
[2017-05-23] MEDS ORDERED: LACTULOSE SYRUP 20 GM/30 ML CUP PO PRN (07:00)
[2017-05-23] MEDS ORDERED: BISACODYL 10 MG SUPP RECTAL PRN (07:00)
[2017-05-23] MEDS ORDERED: ACETAMINOPHEN 325 MG TAB PO PRN ×2 (07:00)
[2017-05-23] MEDS ORDERED: LEVOTHYROXINE SODIUM 50 MCG TAB PO SCH (07:00)
[2017-05-23] MEDS ORDERED: MAGNESIUM HYDROXIDE SUSP 30 ML CUP PO PRN (07:00)
[2017-05-23] MEDS ORDERED: ONDANSETRON HCL 4 MG/2 ML VIAL IVP PRN (07:00)
[2017-05-23] MEDS ORDERED: NALOXONE HCL 0.4 MG/ML AMP IV PRN (07:00)
[2017-05-23] MEDS ORDERED: SENNOSIDES 8.6 MG TAB PO PRN (07:00)
[2017-05-23] MEDS: SODIUM CHLORIDE 0.9% FLUSH 5 ML FLUSH IV FLUSH SCH (08:04)
[2017-05-23] MEDS ORDERED: ASPIRIN 300 MG SUPP RECTAL SCH (09:00)
[2017-05-23] MEDS ORDERED: PANTOPRAZOLE SOD 40 MG DELAYED RELEASE TAB PO SCH (09:00)
[2017-05-23] MEDS ORDERED: DOCUSATE SODIUM 50 MG/SENNA 8.6 MG TAB PO SCH (09:00)
[2017-05-23] MEDS ORDERED: ENOXAPARIN SODIUM 40 MG/0.4 ML SYRINGE SQ SCH (09:00)
--- NOTE | 2017-05-23 11:28 | RADRPT ---
EXAM DATE/TIME: 05/23/2017 11:06 [facility] COMPARISON: MRI BRAIN W/O CONTRAST, May 23, 2017, 11:06. MRA BRAIN W/O CONTRAST, January 29, 2017, 11:21. INDICATIONS : Right sided weakness. MEDICAL HISTORY : Hypertension. CVA SURGICAL HISTORY : Discectomy, cervical. Cholecystectomy. Carotid stent. ENCOUNTER: Initial ACUITY: 1 day PAIN SCORE: 5/10 LOCATION: cranial Please note a normal MRA of the brain does not entirely exclude the possibility of a small aneurysm, nor the possibility of distal intracranial vessel disease. TECHNIQUE: 3D time of flight MRA was performed. Source images, multiplanar STS MIP, and 3D volume MIP reconstru ctions were reviewed. FINDINGS: There excellent visualization of the major intracranial arteries out to the second-order branch vesse ls. There is no evidence for aneurysm, vessel truncation or stenosis, and no evidence for vascular m alformation. Stable small left vertebral artery which appears patent. CONCLUSION: Stable exam without evidence of aneurysm or occlusion. Regina Tadeo MD on May 23, 2017 at 11:25 Board Certified Radiologist. This report was verified electronically.
--- NOTE | 2017-05-23 11:29 | RADRPT ---
EXAM DATE/TIME: 05/23/2017 11:06 [facility] COMPARISON: No previous studies available for comparison. INDICATIONS : Right sided weakness. MEDICAL HISTORY : Hypertension. CVA SURGICAL HISTORY : Discectomy, cervical. Carotid stent. Cholecystectomy. ENCOUNTER: Initial ACUITY: 1 day PAIN SCORE: 5/10 LOCATION: cranial TECHNIQUE: Multiplanar, multisequence MRI of the brain was performed without contrast. FINDINGS: CEREBRUM: The ventricles are normal for age. No evidence of midline shift, mass lesion, hemorrhage or acute in farction. No extraaxial fluid collections are seen. The pituitary gland and suprasellar cistern are normal in configuration. WHITE MATTER: No significant signal abnormalities are seen in the white matter. POSTERIOR FOSSA: The cerebellum and brainstem are intact. The 4th ventricle is midline. The cerebellopontine angle is unremarkable. The cerebellar tonsils are normal in position. DIFFUSION IMAGING: No focal areas of restricted diffusion are seen. No evidence of acute infarction. EXTRACRANIAL: The visualized portions of the orbits and paranasal sinuses are unremarkable. CONCLUSION: Normal examination. Regina Tadeo MD on May 23, 2017 at 11:27 Board Certified Radiologist. This report was verified electronically.
[2017-05-23] MEDS: SODIUM CHLOR 0.9% 1000 ML INJ 1,000 ML IV SCH (11:37)
--- NOTE | 2017-05-23 12:16 | HHI.DCPOC ---
Discharge Care Plan Diagnosis: (1) Right facial numbness Your Health Problems Are: Difficulty with ADL Exercise Tolerance Goals to Promote Your Health * To prevent worsening of your condition and complications * To maintain your health at the optimal level Directions to Meet Your Goals Take your medications as prescribed Follow your dietary instruction Follow activity as directed Keep your appointments as scheduled Take your immunizations and boosters as scheduled If your symptoms worsen call your PCP, if no PCP go to Urgent Care Center or Emergency Room Smoking is Dangerous to Your Health. Avoid second hand smoke Call the 24-hour hour crisis hotline for domestic abuse at Richard Eubanks MD May 23, 2017 12:16
--- NOTE | 2017-05-23 12:17 | HHI.FF ---
Face to Face Verification Diagnosis: (1) Right facial numbness (2) Headache Physical Therapy Order: Evaluate and Treat, Improve ambulation, Strength and gait training I have seen patient Susi Delarosa on 05/23/17. My clinical findings support the need for the requested home health care services because: Deconditioned w/ increased weakness I certify that my clinical findings support that this patient is homebound because: Unsteady gait/balance Need for psychosocial assistance Richard Eubanks MD May 23, 2017 12:17
[2017-05-23] MEDS ORDERED: CLOPIDOGREL 75 MG TAB PO SCH (13:00)
[2017-05-23] MEDS ORDERED: LISINOPRIL 10 MG TAB PO SCH (13:00)
[2017-05-23 13:12] LABS: HDL CHOLESTEROL 52.6 MG/DL (40.0-60.0); LDL CHOLESTEROL 78 MG/DL (0-99)
--- NOTE | 2017-05-23 13:54 | HHI.HP ---
[facility] Bud Guerrero, DO Admission Diagnosis right facial droop, right facial numbness, rule out CVA Diagnoses: Chief Complaint: Right facial numbness Travel History International Travel<30 Days: No Contact w/Intl Traveler <30 Da: No Traveled to Known Affected Are: No History of Present Illness This is a 75-year-old female with a history of hypothyroidism, hypertension, hyperlipidemia, congestive heart failure, COPD, apnea not on C PAP and CVA status post left carotid endarterectomy. She presented to the emergency room because of right facial numbness similar to her symptoms when she had a stroke several months ago. Yesterday she developed severe frontal throbbing headache that lasted for 2 hours followed by worsening right facial numbness extending to her neck which has become more intense and constant. States she has been having intermittent right facial numbness for the past 3-4 days. Denies trauma , fever, chills, visual change, speech or swallowing difficulty, chest pain, shortness of breath, neck pain and focal weakness. Today, she reports of improved numbness. Brain MRI did not show acute stroke. Head MRA unremarkable. The case discussed with neurology who cleared patient for discharge. Doubt Alston's palsy. He wants patient to be observed today and if stable can be discharged in the afternoon. Patient has also been scheduled for CTA of the carotid tomorrow by her director of infection control Dr. Rojas. She'll be premedicated because of her history of contrast allergy. I have a page out to Dr. Rojas to discuss MRA of the carotids results performed in January 2017 which was unremarkable. All other systems reviewed negative Review of Systems Except as stated in HPI: all other systems reviewed are Neg Past Family Social History Past Medical History As previously mentioned Past Surgical History Cholecystectomy, hernia repair and cataract surgery, hysterectomy and carotid endarterectomy Reported Medications Clopidogrel (Clopidogrel Bisulfate) 75 Mg Tab 75 Mg PO DAILY Atorvastatin (Atorvastatin Calcium) 40 Mg Tab 40 Mg PO HS Omeprazole 40 Mg Cap 40 Mg PO DAILY Levothyroxine (Levothyroxine Sodium) 50 Mcg Tab 50 Mcg PO DAILY Lisinopril 10 Mg Tab 10 Mg PO DAILY Allergies: Coded Allergies: Iodinated Contrast- Oral and IV Dye (Verified Allergy, Unknown, 05/22/17) clindamycin (Unverified Allergy, Unknown, 05/22/17) diatrizoate meglumine (Unverified Allergy, Unknown, 05/22/17) gadobenic acid (Unverified Allergy, Unknown, 05/22/17) gadodiamide (Unverified Allergy, Unknown, 05/22/17) gadoteridol (Unverified Allergy, Unknown, 05/22/17) iodixanol (Unverified Allergy, Unknown, 05/22/17) iohexol (Unverified Allergy, Unknown, 05/22/17) latex (Verified Allergy, Unknown, Rash, 05/22/17) penicillin G (Unverified Allergy, Unknown, 05/22/17) Family History CVA and coronary artery disease Social History Doesn't smoke or drink Physical Exam Vital Signs Vital Signs Date Time Temp Pulse Resp B/P (MAP) Pulse Ox O2 Delivery O2 Flow Rate FiO2 05/23/17 11:52 97.3 61 18 141/74 (96) 98 05/23/17 08:00 97.3 58 18 167/86 (113) 95 05/23/17 08:00 96 21 05/23/17 07:01 54 05/23/17 04:00 97.1 58 18 139/80 (99) 96 05/23/17 00:00 96.9 58 18 150/79 (102) 97 05/22/17 23:24 97 21 05/22/17 23:00 57 05/22/17 22:45 96.9 58 18 150/79 (102) 97 05/22/17 22:02 59 18 162/83 (109) 98 Room Air 05/22/17 20:28 58 18 157/79 (105) 98 Room Air 05/22/17 19:42 18 97 Room Air 05/22/17 19:42 Room Air 05/22/17 19:15 98.6 70 18 179/85 (116) 97 Physical Exam GENERAL: This is a well-nourished, well-developed patient, in no apparent distress. SKIN: No rashes, ecchymoses or lesions. Cool and dry. HEAD: Atraumatic. Normocephalic. No temporal or scalp tenderness. EYES: Pupils equal round and reactive. Extraocular motions intact. No scleral icterus. No injection or drainage. ENT: Nose without bleeding, purulent drainage or septal hematoma. Throat without erythema, tonsillar hypertrophy or exudate. Uvula midline. Airway patent. NECK: Trachea midline. No JVD or lymphadenopathy. Supple, nontender, no meningeal signs. CARDIOVASCULAR: Regular rate and rhythm without murmurs, gallops, or rubs. RESPIRATORY: Clear to auscultation. Breath sounds equal bilaterally. No wheezes , rales, or rhonchi. GASTROINTESTINAL: Abdomen soft, non-tender, nondistended. No guarding. MUSCULOSKELETAL: Extremities without clubbing, cyanosis, or edema. No joint tenderness, effusion, or edema noted. No calf tenderness. Negative Homans sign bilaterally. NEUROLOGICAL: Awake and alert. Cranial nerves II through XII intact. Motor and sensory grossly within normal limits. Five out of 5 muscle strength in all muscle groups. Normal speech. Laboratory Laboratory Tests Test 05/22/17 19:45 05/22/17 20:17 05/23/17 08:50 White Blood Count 9.1 Red Blood Count 4.08 Hemoglobin 12.0 Hematocrit 36.5 Mean Corpuscular Volume 89.3 Mean Corpuscular Hemoglobin 29.3 Mean Corpuscular Hemoglobin Concent 32.8 Red Cell Distribution Width 12.9 Platelet Count 209 Mean Platelet Volume 8.4 Neutrophils (%) (Auto) 53.7 Lymphocytes (%) (Auto) 36.2 Monocytes (%) (Auto) 6.1 Eosinophils (%) (Auto) 2.9 Basophils (%) (Auto) 1.1 Neutrophils # (Auto) 4.8 Lymphocytes # (Auto) 3.3 Monocytes # (Auto) 0.6 Eosinophils # (Auto) 0.3 Basophils # (Auto) 0.1 CBC Comment DIFF FINAL Differential Comment Prothrombin Time 10.5 Prothromb Time International Ratio 1.0 Activated Partial Thromboplast Time 23.8 Blood Urea Nitrogen 20 Creatinine 0.89 Random Glucose 95 Total Protein 6.6 Albumin 3.1 Calcium Level 9.0 Alkaline Phosphatase 88 Aspartate Amino Transf (AST/SGOT) 19 Alanine Aminotransferase (ALT/SGPT) 19 Total Bilirubin 0.6 Sodium Level 142 Potassium Level 4.0 Chloride Level 106 Carbon Dioxide Level 29.1 Anion Gap 7 Estimat Glomerular Filtration Rate 62 Urine Color YELLOW Urine Turbidity CLEAR Urine pH 6.5 Urine Specific [place] 1.010 Urine Protein NEG Urine Glucose (UA) NEG Urine Ketones NEG Urine Occult Blood NEG Urine Nitrite NEG Urine Bilirubin NEG Urine Leukocyte Esterase SMALL Urine WBC 3-5 Urine Squamous Epithelial Cells 0-5 Urine Bacteria OCC Microscopic Urinalysis Comment CULT NOT INDICATED Triglycerides Level 139 Cholesterol Level 158 LDL Cholesterol 78 HDL Cholesterol 52.6 Cholesterol/HDL Ratio 3.00 Result Diagram: 05/22/17194405/22/171944 Imaging EKG tracing reviewed by me with sinus rhythm no acute ST-T changes Last Impressions Head Magnetic Resonance Angiography 05/23/17 0000 Signed Impressions: Service Date/Time: Tuesday, May 23, 2017 11:06 - CONCLUSION: Stable exam without evidence of aneurysm or occlusion. Regina Tadeo MD Brain MRI 05/23/17 0000 Signed Impressions: Service Date/Time: Tuesday, May 23, 2017 11:06 - CONCLUSION: Normal examination. Regina Tadeo MD Head CT 05/22/17 191 Signed Impressions: Service Date/Time: Monday, May 22, 2017 19:57 - CONCLUSION: 1. No acute intracranial abnormality. 2. Minimal right maxillary sinus mucosal thickening. Neil Hargrove MD Caprini VTE Risk Assessment Caprini VTE Risk Assessment: Mod/High Risk (score >= 2) Caprini Risk Assessment Model Point Value = 1 Point Value = 2 Point Value = 3 Point Value = 5 Age 41-60 Minor surgery BMI > 25 kg/m2 Swollen legs Varicose veins or History of unexplained or recurrent spontaneous Oral contraceptives or hormone replacement Sepsis (< 1 month) Serious lung disease, including pneumonia (< 1 month) Abnormal pulmonary function Acute myocardial infarction Congestive heart failure (< 1 month) History of inflammatory bowel disease Medical patient at bed rest Age 61-74 Arthroscopic surgery Major open surgery (> 45 min) Laparoscopic surgery (> 45 min) Malignancy Confined to bed (> 72 hours) Immobilizing plaster cast Central venous access Age >= 75 History of VTE Family history of VTE Factor V Leiden Prothrombin [id number] Lupus anticoagulant Anticardiolipin antibodies Elevated serum homocysteine Heparin-induced thrombocytopenia Other congenital or acquired thrombophilia Stroke (< 1 month) Elective arthroplasty Hip, pelvis, or leg fracture Acute spinal cord injury (< 1 month) Prophylaxis Regimen Total Risk Factor Score Risk Level Prophylaxis Regimen 0-1 Low Early ambulation 2 Moderate Order ONE of the following: *Sequential Compression Device (SCD) *Heparin 5000 units SQ BID 3-4 Higher Order ONE of the following medications: *Heparin 5000 units SQ TID *Enoxaparin/Lovenox 40 mg SQ daily (WT < 150 kg, CrCl > 30 mL/min) *Enoxaparin/Lovenox 30 mg SQ daily (WT < 150 kg, CrCl > 10-29 mL/min) *Enoxaparin/Lovenox 30 mg SQ BID (WT < 150 kg, CrCl > 30 mL/min) AND/OR *Sequential Compression Device (SCD) 5 or more Highest Order ONE of the following medications: *Heparin 5000 units SQ TID (Preferred with Epidurals) *Enoxaparin/Lovenox 40 mg SQ daily (WT < 150 kg, CrCl > 30 mL/min) *Enoxaparin/Lovenox 30 mg SQ daily (WT < 150 kg, CrCl > 10-29 mL/min) *Enoxaparin/Lovenox 30 mg SQ BID (WT < 150 kg, CrCl > 30 mL/min) AND *Sequential Compression Device (SCD) Assessment and Plan Problem List: (1) Headache ICD Code: R51 - Headache Status: Acute (2) Facial droop ICD Code: R29.810 - Facial weakness Status: Acute Assessment and Plan This is a 75-year-old female with a history of hypothyroidism, hypertension, hyperlipidemia, congestive heart failure, COPD, apnea not on C PAP and CVA status post left carotid endarterectomy. She presented to the emergency room because of right facial numbness similar to her symptoms when she had a stroke several months ago. Right facial numbness with transient headache in a patient with a history of CVA status post left carotid endarterectomy. She is neurologically intact and stable. Repeat brain MRI did not show acute stroke. Discontinue permissive hypertension. Physical therapy has already evaluated the patient and recommended home health care physical therapy. Patient also cleared for discharge by neurology to continue Plavix. LDL 78 on Lipitor. A1c pending. Risk factor modifications. Patient had extensive stroke workup 3 months ago which included neck and head MRA, Holter monitor and echocardiogram which were all unremarkable. I have a page out to Dr. Rojas to discuss MRA of the carotids results performed in January 2017 DVT prophylaxis with SCD and subcutaneous Lovenox Code Status Discharge patient to home with home care physical therapy. She has significantly improved earlier than anticipated Condition on discharge: Improved Regular Diet as tolerated Ad Merna activity no driving Rx written: None Follow-up with primary care physician, neurology and cardiology Richard Eubanks MD May 23, 2017 13:54
[2017-05-23] MEDS ORDERED: ATORVASTATIN 40 MG TAB PO SCH (21:00)
[2017-05-24 16:04] LABS: HEMOGLOBIN A1a 1.7 %; HEMOGLOBIN A1b 0.8 %; HEMOGLOBIN Ao 84.2 %; HEMOGLOBIN F 1.7 %; HEMOGLOBIN P3 3.7 %
== END 2017-05-23 17:13 | disposition home health service (06) | DRG 66 ==
LOC: PHED 19:02 → PHEDA 20:57 → PH3A 22:32
PROVIDERS: ADMIT Internal Medicine; ATTEND Internal Medicine
DX: I63.9 Cerebral infarction, unspecified (principal); I11.0 Hypertensive heart disease with heart failure; I50.9 Heart failure, unspecified; J44.9 Chronic obstructive pulmonary disease, unspecified; E03.9 Hypothyroidism, unspecified; E78.5 Hyperlipidemia, unspecified; G47.30 Sleep apnea, unspecified; K21.9 Gastro-esophageal reflux disease without esophagitis; R29.810 Facial weakness; Z86.73 Personal history of transient ischemic attack (TIA), and cerebral infarction without residual deficits; Z91.041 Radiographic dye allergy status
CPT/HCPCS: 70450; 70544; 70551; 80053; 80061; 81001; 82948; 83036; 85025; 85610; 85730; 93005; J1650; J7030